=== PATIENT | male | born 1965 | race Caucasian/White ===

== ENCOUNTER 2018-03-29 09:54 | Inpatient (IN) | payer BC ==
[~2018-03-29 09:54] MED LIST: MEROPENEM 500 MG in NS 500 MG/50 ML BAG IVPB SCH
[2018-03-29 10:04] VITALS: BMI 35.8
[2018-03-29 10:14] LABS: VENOUS BLOOD GAS BASE EXCESS -10.9 mmol/L (0.0-2.0); VENOUS BLOOD GAS PO2 101 mm/Hg (30-55); VENOUS BLOOD PH 7.36 (7.32-7.43)
--- NOTE | 2018-03-29 10:18 | ED PDOC ---
Arrival/HPI - General Historian: Patient - History of Present Illness Narrative History of Present Illness (Text): 03/29/18 10:12 This is a 53 y o male with past medical history of HTN and DM2 who presents to the ED [facility] c/o shortness of breath that started yesterday evening and worsening since this am. Reports having mid epigastric pain after coughing yesterday that led to 2 vomiting episodes, but denies nausea or vomiting this am. States he tried to see his PMD Dr. Melgar but his office was closed, so he went to [facility], who sent him directly here to the ED. States he has been sick for the past several days with fever and productive cough with sputum. Has been short of breath in the past but not this severe. Denies chest pain, achiness or tightness. Denies wheezing. States that it is difficult to breathe. Diaphoretic on exam. Denies urinary complaints, LE edema. Admits to decreased PO appetite, but admits to polydipsia Past medical hx: DM2, HTN Past SurgHx: appendectomy Allergies: NKDA Home meds: Januvia daily, Metformin, Metoprolol, Amlodipine (pt does not know dosages) Fam hx: denies Soc hx: admits to smoking 2-3 cigarettes/day for the past 3-4 y; denies EtOH or illicit drug use PMD: Dr. Melgar <Oumar Spencer - Last Filed: 03/29/18 11:55> - Critical Care Critical Care Minutes: 45 minutes - History of Present Illness Time/Duration: 24 hours Symptom Onset: Gradual Symptom Course: Worsening Activities at Onset: Light Context: Home Associated Symptoms (Text): 03/29/18 12:13 Seen and examined with the resident. Our history and physical exam reveals a gentleman complaining of fever or chills cough shortness of breath since yesterday. He was seen at a walk-in center this morning and directed to the emergency department. He is in severe distress severely diaphoretic and tachycardic. His initial lactate was greater than 10. His temperature was 104.6. After 4 L of normal saline solution his lactate decreased to 4.0. His temperature is 100. He was seen in the emergency department by the infectious disease specialist. He will be admitted to a telemetry bed. <Good Vieyra - Last Filed: 03/29/18 12:14> - General Chief Complaint: Shortness Of Breath Past Medical History - Cardiac Hx Hypertension: Yes - Endocrine/Metabolic Hx Diabetes Mellitus Type 2: Yes - Psychiatric Hx Substance Use: No - Surgical History Hx Appendectomy: Yes <Oumar Spencer - Last Filed: 03/29/18 11:55> - Provider Review Nursing Documentation Reviewed: Yes <Good Vieyra - Last Filed: 03/29/18 12:14> Family/Social History Family/Social History: No Known Family HX Smoking Status: Current Some Days Smoker Hx Alcohol Use: Yes Hx Substance Use: No <Oumar Spencer - Last Filed: 03/29/18 11:55> - Physician Review Nursing Documentation Reviewed: Yes <Good Vieyra - Last Filed: 03/29/18 12:14> Allergies/Home Meds <Oumar Spencer - Last Filed: 03/29/18 11:55> <Good Vieyra - Last Filed: 03/29/18 12:14> Allergies/Adverse Reactions: Allergies No Known Allergies Allergy (Verified 03/29/18 10:04) Home Medications: Home Meds Medication Instructions Recorded Confirmed Amlodipine/Valsartan/Hcthiazid 1 tab PO DAILY 06/02/16 06/02/16 [Xweepfnbob-Xkrpdxcgp-Vmlsrgykizsyqhgvokz 10 M] SITagliptin [Januvia] 0 mg PO DAILY 06/02/16 06/02/16 Review of Systems - Review of Systems Constitutional: Fatigue, Fevers, Other (Diaphoresis). absent: Weight Change Eyes: absent: Vision Changes ENT: absent: Sore Throat, Rhinorrhea Respiratory: SOB, Cough, Sputum. absent: Wheezing Cardiovascular: ZAMBRANO, Orthopnea. absent: Chest Pain, Palpitations, Calf Pain, Syncope Gastrointestinal: Appetite Changes. absent: Abdominal Pain, Constipation, Diarrhea, Nausea, Vomiting Skin: Normal. absent: Rash, Skin Lesions Neurological: absent: Headache, Dizziness Endocrine: Diaphoresis, Polydipsia. absent: Polyuria <Oumar Spencer - Last Filed: 03/29/18 11:55> - Physician Review All systems were reviewed & negative as marked: Yes <Good Vieyra - Last Filed: 03/29/18 12:14> Physical Exam Vital Signs Temp Pulse Resp BP Pulse Ox 03/29/18 10:05 99.1 F 156 H 20 119/72 98 Temperature: Febrile Blood Pressure: Normal Pulse: Tachycardic Respiratory Rate: Tachypneic Appearance: Positive for: Ill-Appearing, Uncomfortable Pain Distress: None Mental Status: Positive for: Alert and Oriented X 3 - Systems Exam Head: Present: Atraumatic, Normocephalic Pupils: Present: PERRL Extroacular Muscles: Present: EOMI Conjunctiva: Present: Normal Mouth: Present: Moist Mucous Membranes Respiratory/Chest: Present: Clear to Auscultation, Good Air Exchange, Tachypneic. No: Wheezes, Rales, Rhonchi, Tender to Palpation Cardiovascular: Present: Normal S1, S2, Peripheal Pulses Present, Tachycardic. No: Murmurs, Rub, Gallop Abdomen: Present: Normal Bowel Sounds. No: Tenderness, Distention, Mass/Organomegaly Upper Extremity: Present: Normal Inspection, Normal ROM, NORMAL PULSES, Neurovascularly Intact, Capillary Refill < 2s. No: Cyanosis, Edema, Temperature Abnormalties Lower Extremity: Present: Normal Inspection, NORMAL PULSES, Neurovascularly Intact, Capillary Refill < 2 s. No: Edema Neurological: Present: GCS=15, CN II-XII Intact, Speech Normal, Motor Func Grossly Intact Skin: Present: Warm, Normal Color, Diaphoretic. No: Rashes Psychiatric: Present: Alert, Oriented x 3, Normal Insight, Normal Concentration <Oumar Spencer - Last Filed: 03/29/18 11:55> Vital Signs Reviewed: Yes Vital Signs Temp Pulse Resp BP Pulse Ox 03/29/18 10:52 104.6 F H 03/29/18 10:18 104.6 F H 03/29/18 10:13 20 98 03/29/18 10:05 99.1 F 156 H 24 119/72 98 <Good Vieyra - Last Filed: 03/29/18 12:14> Medical Decision Making ED Course and Treatment: 03/29/18 10:18 Code Sepsis called for tachycardia, elevated lactate 10.1, and rectal temp 104.6. 03/29/18 10:29 53 y o male Hx DM, HTN presents with worsening of shortness of breath. IVF boluses running. EKG demonstrate sinus tachycardia at 153 bpm, no acute St-t wave changes noted. Elevated POC glucose at 475. Stat CXR ordered. Pending CBC, CMP, blood cxs, D-dimer, BNP, troponin. Ordered broad-spectrum anbx. Tylenol given for fever. Continue to monitor. 03/29/18 11:56 Tachycardia improving, repeat lactate 4. Pt states he feels a little better. Discussed with Dr. Granados plan for admission. Dr. Esposito consulted (ID), was at bedside evaluating pt. - Lab Interpretations Lab Results: Lab Results 03/29/18 09:56: POC Glucose (mg/dL) 375 H - RAD Interpretation Radiology Orders: 03/29/18 10:07 CHEST PORTABLE [RAD] Stat CHEST PORTABLE [RAD] Stat - EKG Interpretation EKG Interpretation (Text): 03/29/18 10:35 Sinus tachycardia at 153 bpm, no acute St-t wave changes noted. Interpreted by ED Physician: Yes Type: 12 lead EKG Comparison: No previous EKG avail. <Oumar Spencer - Last Filed: 03/29/18 11:55> ED Course and Treatment: In agreement with resident note, which includes further HPI details. Patient was seen and evaluated with resident, came up with plan and treatment together. 53 year old male presents complaining of worsening shortness of breath that began yesterday evening associated with polydipsia. Plan: -- VBG, ABG. VBG shock Panel -- EKG -- Labs -- Chest X-ray -- Influenza Type A and B -- Fingerstick, Rectal temp, Urinary cath -- Blood Culture, Urine Culture -- Urinalysis w/ micro -- Reassess and disposition CXR Impression: As read by me, No active disease. 03/29/18 12:13 Symptoms markedly improved. - Lab Interpretations Lab Results: 03/29/18 10:00 03/29/18 10:00 Lab Results 03/29/18 10:30: pCO2 22 L, pO2 90.0, HCO3 14.3 L, ABG pH 7.42, ABG Total CO2 15.0 L, ABG O2 Saturation 98.5 H, ABG Base Excess -8.1 L, ABG Potassium 3.2 L, Sodium 131.0 L, Chloride 100.0, Glucose 433 H*, Lactate 6.3 H*, FiO2 21.0, Arterial Blood Potassium 3.2 L 03/29/18 10:00: Phosphorus 3.8, Magnesium 1.2 L 03/29/18 10:00: D-Dimer, Quantitative 2346 H 03/29/18 10:00: pO2 101 H, VBG pH 7.36, VBG pCO2 22.0 L, VBG HCO3 12.4 L, VBG Total CO2 13.1 L, VBG O2 Sat (Calc) 98.5 H, VBG Base Excess -10.9 L, VBG Potassium 3.7, Sodium 132.0, Chloride 98.0, Glucose 475 H*, Lactate 10.1 H*, FiO2 21.0, Venous Blood Potassium 3.7 03/29/18 10:00: Sodium 135, Chloride 102, Potassium 3.9, Carbon Dioxide 13 L, Anion Gap 25 H, BUN 22 H, Creatinine 2.0 H, Est GFR ( Amer) 42, Est GFR (Non-Af Amer) 35, Random Glucose 441 H*, Calcium 9.0, Total Bilirubin 2.5 H, AST 32, ALT 22, Alkaline Phosphatase 167 H, Lactate Dehydrogenase 399, Total Creatine Kinase 65, Troponin I < 0.01, NT-Pro-B Natriuret Pep 497 H, Total Protein 8.0, Albumin 3.9, Globulin 4.2, Albumin/Globulin Ratio 0.9 L 03/29/18 10:00: PT 15.1 H, INR 1.31, APTT 22.9 L 03/29/18 10:00: WBC 11.3 H, RBC 4.32, Hgb 12.4 L, Hct 36.4 L, MCV 84.3, MCH 28.7, MCHC 34.1, RDW 13.7, Plt Count 384, MPV 9.6, Gran % 88.8 H, Lymph % (Auto) 10.1 L, Knott % (Auto) 0.9 L, Eos % (Auto) 0.1 L, Baso % (Auto) 0.1, Gran # 10.00 H, Lymph # (Auto) 1.1 L, Knott # (Auto) 0.1, Eos # (Auto) 0.0, Baso # (Auto) 0.01 03/29/18 09:56: POC Glucose (mg/dL) 375 H I have reviewed the lab results: Yes - RAD Interpretation Radiology Orders: 03/29/18 10:07 CHEST PORTABLE [RAD] Stat - Medication Orders Current Medication Orders: Acetaminophen (Tylenol 325mg Tab) 975 mg PO ONCE PRN PRN Reason: Fever >100.4 F Last Admin: 03/29/18 10:52 Dose: 975 mg MAR Pain/Vitals Document 03/29/18 10:52 KV (Rec: 03/29/18 10:53 KV [facility] [id number]) Vitals Temperature (97.6 F-99.6 F) 104.6 F Temperature Source Rectal Gentamicin Sulfate 480 mg/ (Sodium Chloride) 112 mls @ 100 mls/hr IVPB STAT STA; Protocol Stop: 03/29/18 11:26 Magnesium Sulfate/Dextrose (Magnesium Sulfate 1 Gm/100 Ml D5w) 1 gm in 100 mls @ 100 mls/hr IVPB ONCE ONE Stop: 03/29/18 11:55 Sodium Chloride (Sodium Chloride 0.9%) 4,000 mls @ 7,184.88 mls/hr IV .Q34M STA Stop: 03/29/18 11:30 Discontinued Medications Lactated Ringer's 4,000 ml/ IV (SUPPLIES) 4,000 mls @ 7,184.88 mls/hr IV ONCE ONE Stop: 03/29/18 10:52 Piperacillin Sod/Tazobactam Sod (Zosyn 4.5 Gm In Ns 100ml) 4.5 gm in 100 mls @ 200 mls/hr IVPB STAT STA; Protocol Stop: 03/29/18 10:48 Last Admin: 03/29/18 10:53 Dose: 200 mls/hr eMAR Start Stop Document 03/29/18 10:53 KV (Rec: 03/29/18 10:53 KV [facility]16-) Intravenous Solution Start Date 03/29/18 Start Time 10:53 <Good Vieyra - Last Filed: 03/29/18 12:14> - PA / [employer]ATOR / Resident Statement / has reviewed & agrees with the documentation as recorded. / has examined the patient and agrees with the treatment plan. - Scribe Statement The provider has reviewed the documentation as recorded by the Scribe Khadijah Parnell Provider Scribe Attestation: All medical record entries made by the Scribe were at my direction and personally dictated by me. I have reviewed the chart and agree that the record accurately reflects my personal performance of the history, physical exam, medical decision making, and the department course for this patient. I have also personally directed, reviewed, and agree with the discharge instructions and disposition. <Good Vieyra - Last Filed: 03/29/18 12:14> Disposition/Present on Arrival - Present on Arrival Any Indicators Present on Arrival: No History of DVT/PE: No History of Uncontrolled Diabetes: No Urinary Catheter: No History Surgical Site Infection Following: None <Oumar Spencer - Last Filed: 03/29/18 11:55> - Present on Arrival Any Indicators Present on Arrival: No History of DVT/PE: No History of Uncontrolled Diabetes: Yes Urinary Catheter: No History of Decub. Ulcer: No - Disposition Have Diagnosis and Disposition been Completed?: Yes Disposition Time: 11:36 Patient Plan: Admission, Telemetry <Good Vieyra - Last Filed: 03/29/18 12:14> - Disposition Diagnosis: Sepsis, Tachycardia, Hyperglycemia, Renal failure, Dehydration Disposition: HOSPITALIZED Patient Problems: Current Active Problems Problem Status Onset Dehydration Acute Hyperglycemia Acute Renal failure Acute Sepsis Acute Tachycardia Acute Condition: GUARDED
[2018-03-29] MEDS ORDERED: Piperacill/Tazo 4.5gm in NS 4.5 GM/100 ML BAG IVPB STA (10:19)
[2018-03-29 10:29] LABS: GRAN % 88.8 % (50.0-68.0); HEMOGLOBIN 12.4 g/dL (14.0-18.0); LYMPH % 10.1 % (22.0-35.0); MEAN CELL VOLUME 84.3 fl (80.0-105.0); MEAN CORPUSCULAR HEMOGLOBIN 28.7 pg (25.0-35.0); MEAN CORPUSCULAR HGB CONC 34.1 g/dl (31.0-37.0); MEAN PLATELET VOLUME 9.6 fl (7.0-11.0); RBC 4.32 10^6/uL (3.5-6.1); RED CELL DISTRIBUTION WIDTH 13.7 % (11.5-14.5); WHITE BLOOD COUNT 11.3 10^3/uL (4.5-11.0)
[2018-03-29 10:30] LABS: BASO # 0.01 K/mm3 (0.0-2.0); BASO % 0.1 % (0.0-3.0); EOS % 0.1 % (1.5-5.0); INR 1.31; LYMPH # 1.1 (1.2-3.4); MONO # 0.1 (0.1-0.6); MONO % 0.9 % (1.0-6.0); PARTIAL THROMBOPLASTIN TIME 22.9 Seconds (25.1-36.5); PROTHROMBIN TIME 15.1 SECONDS (9.4-12.5)
--- NOTE | 2018-03-29 10:31 | PCM.SEPTIC ---
Sepsis Progress Note - Reassessment Type Date of Evaluation: 03/29/18 Time of Evaluation: 14:49 Reassessment Type: Non-invasive reassessment - Non Invasive Reassessment Were the most recent vital sign reviewed: Yes Vital Sign (Latest): Temp Pulse Resp BP Pulse Ox 104.6 F H 156 H 20 119/72 98 03/29/18 10:18 03/29/18 10:05 03/29/18 10:13 03/29/18 10:05 03/29/18 10:13 Cardiovascular: Yes: Regular Rate, Rhythm, Chest Non Tender. No: Edema, JVD, Murmur, Friction Rub Respiratory: Yes: Normal Breath Sounds. No: Decreased Breath Sounds, Accessory Muscle Use, Respiratory Distress Capillary Refill: Normal (Less than 2 sec) Skin: Normal Color, Warm, Dry <Alona Hatch - Last Filed: 03/29/18 14:48> - Non Invasive Reassessment Vital Sign (Latest): Temp Pulse Resp BP Pulse Ox 98.1 F 91 H 20 135/78 100 04/03/18 14:00 04/03/18 17:31 04/03/18 14:00 04/03/18 17:31 04/03/18 14:00 <Estevan Ace - Last Filed: 04/07/18 17:10> Attending/Attestation - Attestation I have personally seen and examined this patient.: No I have fully participated in the care of the patient.: No I have reviewed all pertinent clinical information, including history, physical exam and plan: No <Estevan Ace - Last Filed: 04/07/18 17:10>
[2018-03-29 10:36] LABS: ALB/GLOB RATIO 0.9 (1.1-1.8); ALBUMIN 3.9 g/dL (3.0-4.8); ALT/SGPT 22 U/L (7-56); AST/SGOT 32 U/L (17-59); BLOOD UREA NITROGEN 22 mg/dL (7-21); GFR NON-AFRICAN AMERICAN 35
[2018-03-29 10:40] LABS: ARTERIAL BLOOD GAS HCO3 14.3 mmol/L (21-28); ARTERIAL BLOOD GAS O2 SAT 98.5 % (95-98); ARTERIAL BLOOD GAS PCO2 22 mm/Hg (35-45); ARTERIAL BLOOD GAS PH 7.42 (7.35-7.45)
[2018-03-29 10:45] LABS: B-TYPE NATRIURETIC PEPTIDE 497 pg/mL (0-450); TROPONIN I < 0.01 ng/mL
[2018-03-29] MEDS ORDERED: Magnesium Sulfate 1 gm in D5W 1 GM/100 ML BAG IVPB ONE (10:56)
[2018-03-29 11:11] LABS: URINE BILIRUBIN NEGATIVE (NEGATIVE); URINE BLOOD LARGE (NEGATIVE); URINE GLUCOSE (UA) >=1000 mg/dL (NEGATIVE); URINE LEUKOCYTE ESTERASE NEGATIVE Leu/uL (NEGATIVE); URINE PROTEIN 30 mg/dL (<30 mg/dL); URINE UROBILINOGEN 0.2 E.U./dL (<1 E.U./dL)
[2018-03-29 11:15] LABS: URINE APPEARANCE SL CLOUDY (CLEAR); URINE COLOR YELLOW (YELLOW)
[2018-03-29 11:32] LABS: URINE BACTERIA MANY (NEG); URINE EPITHELIAL CELLS 0 - 2 /hpf (0-5); URINE RBC TNTC /hpf (0-2)
[2018-03-29] MEDS ORDERED: Insulin Regular 1 UNITS/0.01 ML ML SC STA (11:33)
[2018-03-29 11:45] LABS: VENOUS BLOOD GAS BASE EXCESS -8.2 mmol/L (0.0-2.0); VENOUS BLOOD GAS PO2 109 mm/Hg (30-55); VENOUS BLOOD PH 7.35 (7.32-7.43)
[2018-03-29] MEDS ORDERED: Sodium Chloride 0.9% 1,000 ML IV STA ×2 (12:15→23:55)
--- NOTE | 2018-03-29 13:08 | RAD ---
Date of service: 03/29/2018 HISTORY: sob COMPARISON: Comparison chest 06/02/2016. FINDINGS: LUNGS: No active pulmonary disease. Redemonstrated are tiny granulomas left apex and left upper lobe PLEURA: No significant pleural effusion identified, no pneumothorax apparent. CARDIOVASCULAR: No aortic atherosclerotic calcification present. Normal cardiac size. No pulmonary vascular congestion. OSSEOUS STRUCTURES: No significant abnormalities. VISUALIZED UPPER ABDOMEN: Normal. OTHER FINDINGS: None. IMPRESSION: No active disease. Redemonstrated are tiny granulomas left apex and upper lobe
[2018-03-29] MEDS ORDERED: Influenza Vaccine 60 mcg/0.5 mL SYR (4YR UP) IM ONE (13:49)
[2018-03-29] MEDS ORDERED: Pneumococcal 23-Valent Vaccine IM ONE (13:49)
[2018-03-29] MEDS: Sodium Chloride 0.9% 1,000 ML IV SCH (14:40)
[2018-03-29] MEDS ORDERED: Vancomycin 1gm in NS 250ml 1 GM/250 ML BAG IVPB SCH (16:00)
[2018-03-29 17:14] LABS: TROPONIN I 0.08 ng/mL
--- NOTE | 2018-03-29 17:35 | CP.PCM.CON ---
<Brenden Robertson - Last Filed: 03/29/18 17:22> History of Present Illness - History of Present Illness History of Present Illness: Brenden Robertson, PGY1 ICU Consult Note for Dr. Wan Patient is a 53 y/o M with PMHx of HTN and DM2 who presents to the ED via EMS with complaints of shortness of breath that started yesterday evening and worsening since the morning. In the ED, patient said he had mild epigastric pain with cough. He also endorsed x2 vomiting episodes. Patient went to see his PMD but he said the office was closed. However, in the ED patient had no episodes of vomiting. Patient also had some complaints of shortness of breath. In the ED, Code Sepsis was called. Patient had a temperature of 104.6, tachycardia with HR 156. CXR was negative for any active disease. ICU was consulted for evaluation of sepsis. Patient was examined by the ICU team. He initially presented with hypotension. He was given a total of x4 liters of IVF. However, later his blood pressure improved to BP 106/60. Sinus tachycardia was noted on the monitor. Patient said he has had some pain with urination and increased frequency of urination. Shortness of breath improved since he came to the ICU. Denies cp, abdominal pain, n/v/d, lightheadedness, dizziness. A full 12 point ROS was conducted and unremarkable except as stated above PMD: Dr. Melgar PMHx: DM2, HTN PSHx: appendectomy Allergies: NKDA Home meds: Januvia daily, Metformin, Metoprolol, Amlodipine (pt does not know dosages) FamHx: denies SocialHx: admits to smoking 2-3 cigarettes/day for the past 3-4 y; denies EtOH or illicit drug use Review of Systems - Review of Systems All systems: reviewed and no additional remarkable complaints except (as per HPI) Past Patient History - Infectious Disease Hx of Infectious Diseases: None - Past Social History Smoking Status: Light Smoker < 10 Cigarettes Daily - CARDIAC Hx Cardiac Disorders: Yes Hx Hypertension: Yes - PULMONARY Hx Respiratory Disorders: Yes Other/Comment: smoker 2 cigs a night - NEUROLOGICAL Hx Neurological Disorder: No - HEENT Hx HEENT Problems: Yes Other/Comment: hoarse voice x 2 weeks - RENAL Hx Kidney Stones: Yes ("kidney infection" 1 yr ago) Other/Comment: 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." - ENDOCRINE/METABOLIC Hx Endocrine Disorders: Yes Hx Diabetes Mellitus Type 2: Yes - HEMATOLOGICAL/ONCOLOGICAL Hx Blood Disorders: No - INTEGUMENTARY Hx Dermatological Problems: Yes Other/Comment: ble and beet brown skin discolorations and dry skin - MUSCULOSKELETAL/RHEUMATOLOGICAL Hx Falls: No - GASTROINTESTINAL Hx Gastrointestinal Disorders: Yes (obese) Hx Gastroesophageal Reflux: Yes Other/Comment: right lower abd palpable hernia - GENITOURINARY/GYNECOLOGICAL Hx Genitourinary Disorders: Yes Other/Comment: kidney infections from "holding urine" for long periods of time, 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 - PSYCHIATRIC Hx Substance Use: No - SURGICAL HISTORY Hx Surgeries: Yes Hx Appendectomy: Yes - ANESTHESIA Hx Anesthesia: Yes Hx Anesthesia Reactions: No Hx Malignant Hyperthermia: No Meds Allergies/Adverse Reactions: Allergies Allergy/AdvReac Type Severity Reaction Status Date / Time No Known Allergies Allergy Verified 03/29/18 10:04 - Medications Medications: Current Medications Acetaminophen (Tylenol 325mg Tab) 975 mg PO ONCE PRN PRN Reason: Fever >100.4 F Last Admin: 03/29/18 10:52 Dose: 975 mg Acetaminophen (Tylenol 325mg Tab) 650 mg PO Q4H PRN PRN Reason: Fever >100.4 F Sodium Chloride (Sodium Chloride 0.9%) 1,000 mls @ 80 mls/hr IV .[id number] JÚNIOR Last Admin: 03/29/18 14:40 Dose: 80 mls/hr Meropenem/Sodium Chloride (Merrem Iv 500 Mg/Ns 50 Ml) 500 mg in 50 mls @ 100 mls/hr IVPB Q12 JÚNIOR; Protocol Stop: 03/29/18 22:29 Vancomycin HCl (Vancomycin 1gm) 1 gm in 250 mls @ 167 mls/hr IVPB Q12H JÚNIOR; Protocol Insulin Human Lispro (Humalog Low) 0 units SC ACHS JÚNIOR; Protocol Physical Exam - Constitutional Appears: No Acute Distress - Head Exam Head Exam: ATRAUMATIC, NORMAL INSPECTION, NORMOCEPHALIC - Eye Exam Eye Exam: EOMI, Normal appearance - ENT Exam ENT Exam: Mucous Membranes Moist, Normal Exam - Neck Exam Neck exam: Positive for: Normal Inspection - Respiratory Exam Respiratory Exam: Clear to Auscultation Bilateral. absent: Chest Wall Tenderness, Rales, Rhonchi, Wheezes - Cardiovascular Exam Cardiovascular Exam: RRR, +S1, +S2 - GI/Abdominal Exam GI & Abdominal Exam: Soft. absent: Guarding, Organomegaly, Rebound, Rigid, Tenderness - Exam Additional comments: Fuentes in place - Extremities Exam Extremities exam: Positive for: normal inspection - Neurological Exam Neurological exam: Alert, Oriented x3 - Skin Skin Exam: Dry, Intact, Normal Color, Warm Results - Vital Signs Recent Vital Signs: Last Vital Signs Temp 100.1 F H 03/29/18 15:00 Pulse 121 H 03/29/18 15:00 Resp 18 03/29/18 14:05 BP 84/55 L 03/29/18 14:05 Pulse Ox 95 03/29/18 14:05 - Labs Result Diagrams: 03/29/18 10:00 03/29/18 10:00 Labs: Laboratory Results - last 24 hr 03/29/18 03/29/18 03/29/18 09:56 10:00 10:00 WBC 11.3 H RBC 4.32 Hgb 12.4 L Hct 36.4 L MCV 84.3 MCH 28.7 MCHC 34.1 RDW 13.7 Plt Count 384 MPV 9.6 Gran % 88.8 H Lymph % (Auto) 10.1 L [place] % (Auto) 0.9 L Eos % (Auto) 0.1 L Baso % (Auto) 0.1 Gran # 10.00 H Lymph # (Auto) 1.1 L [place] # (Auto) 0.1 Eos # (Auto) 0.0 Baso # (Auto) 0.01 PT 15.1 H INR 1.31 APTT 22.9 L D-Dimer, Quantitative pCO2 pO2 HCO3 ABG pH ABG Total CO2 ABG O2 Saturation ABG Base Excess ABG Potassium VBG pH VBG pCO2 VBG HCO3 VBG Total CO2 VBG O2 Sat (Calc) VBG Base Excess VBG Potassium Sodium Chloride Glucose Lactate FiO2 Potassium Carbon Dioxide Anion Gap BUN Creatinine Est GFR ( Amer) Est GFR (Non-Af Amer) POC Glucose (mg/dL) 375 H Random Glucose Calcium Phosphorus Magnesium Total Bilirubin AST ALT Alkaline Phosphatase Lactate Dehydrogenase Total Creatine Kinase Troponin I NT-Pro-B Natriuret Pep Total Protein Albumin Globulin Albumin/Globulin Ratio Amylase Lipase Arterial Blood Potassium Venous Blood Potassium Urine Color Urine Appearance Urine pH Ur Specific [place] Urine Protein Urine Glucose (UA) Urine Ketones Urine Blood Urine Nitrate Urine Bilirubin Urine Urobilinogen Ur Leukocyte Esterase Urine RBC Urine WBC Ur Epithelial Cells Urine Bacteria Influenza Typ A,B (EIA) 03/29/18 03/29/18 03/29/18 10:00 10:00 10:00 WBC RBC Hgb Hct MCV MCH MCHC RDW Plt Count MPV Gran % Lymph % (Auto) [place] % (Auto) Eos % (Auto) Baso % (Auto) Gran # Lymph # (Auto) [place] # (Auto) Eos # (Auto) Baso # (Auto) PT INR APTT D-Dimer, Quantitative 2346 H pCO2 pO2 101 H HCO3 ABG pH ABG Total CO2 ABG O2 Saturation ABG Base Excess ABG Potassium VBG pH 7.36 VBG pCO2 22.0 L VBG HCO3 12.4 L VBG Total CO2 13.1 L VBG O2 Sat (Calc) 98.5 H VBG Base Excess -10.9 L VBG Potassium 3.7 Sodium 135 132.0 Chloride 102 98.0 Glucose 475 H* Lactate 10.1 H* FiO2 21.0 Potassium 3.9 Carbon Dioxide 13 L Anion Gap 25 H BUN 22 H Creatinine 2.0 H Est GFR ( Amer) 42 Est GFR (Non-Af Amer) 35 POC Glucose (mg/dL) Random Glucose 441 H* Calcium 9.0 Phosphorus Magnesium Total Bilirubin 2.5 H AST 32 ALT 22 Alkaline Phosphatase 167 H Lactate Dehydrogenase 399 Total Creatine Kinase 65 Troponin I < 0.01 NT-Pro-B Natriuret Pep 497 H Total Protein 8.0 Albumin 3.9 Globulin 4.2 Albumin/Globulin Ratio 0.9 L Amylase Lipase Arterial Blood Potassium Venous Blood Potassium 3.7 Urine Color Urine Appearance Urine pH Ur Specific [place] Urine Protein Urine Glucose (UA) Urine Ketones Urine Blood Urine Nitrate Urine Bilirubin Urine Urobilinogen Ur Leukocyte Esterase Urine RBC Urine WBC Ur Epithelial Cells Urine Bacteria Influenza Typ A,B (EIA) 03/29/18 03/29/18 03/29/18 10:00 10:30 10:55 WBC RBC Hgb Hct MCV MCH MCHC RDW Plt Count MPV Gran % Lymph % (Auto) [place] % (Auto) Eos % (Auto) Baso % (Auto) Gran # Lymph # (Auto) [place] # (Auto) Eos # (Auto) Baso # (Auto) PT INR APTT D-Dimer, Quantitative pCO2 22 L pO2 90.0 HCO3 14.3 L ABG pH 7.42 ABG Total CO2 15.0 L ABG O2 Saturation 98.5 H ABG Base Excess -8.1 L ABG Potassium 3.2 L VBG pH VBG pCO2 VBG HCO3 VBG Total CO2 VBG O2 Sat (Calc) VBG Base Excess VBG Potassium Sodium 131.0 L Chloride 100.0 Glucose 433 H* Lactate 6.3 H* FiO2 21.0 Potassium Carbon Dioxide Anion Gap BUN Creatinine Est GFR ( Amer) Est GFR (Non-Af Amer) POC Glucose (mg/dL) Random Glucose Calcium Phosphorus 3.8 Magnesium 1.2 L Total Bilirubin AST ALT Alkaline Phosphatase Lactate Dehydrogenase Total Creatine Kinase Troponin I NT-Pro-B Natriuret Pep Total Protein Albumin Globulin Albumin/Globulin Ratio Amylase Lipase Arterial Blood Potassium 3.2 L Venous Blood Potassium Urine Color Urine Appearance Urine pH Ur Specific [place] Urine Protein Urine Glucose (UA) Urine Ketones Urine Blood Urine Nitrate Urine Bilirubin Urine Urobilinogen Ur Leukocyte Esterase Urine RBC Urine WBC Ur Epithelial Cells Urine Bacteria Influenza Typ A,B (EIA) Negative for flu a/b 03/29/18 03/29/18 03/29/18 11:00 11:29 11:30 WBC RBC Hgb Hct MCV MCH MCHC RDW Plt Count MPV Gran % Lymph % (Auto) [place] % (Auto) Eos % (Auto) Baso % (Auto) Gran # Lymph # (Auto) [place] # (Auto) Eos # (Auto) Baso # (Auto) PT INR APTT D-Dimer, Quantitative pCO2 pO2 109 H HCO3 ABG pH ABG Total CO2 ABG O2 Saturation ABG Base Excess ABG Potassium VBG pH 7.35 VBG pCO2 29.0 L VBG HCO3 16.0 L VBG Total CO2 16.9 L VBG O2 Sat (Calc) 98.5 H VBG Base Excess -8.2 L VBG Potassium 3.2 L Sodium 134.0 Chloride 105.0 Glucose 369 H Lactate 4.0 H* FiO2 21.0 Potassium Carbon Dioxide Anion Gap BUN Creatinine Est GFR ( Amer) Est GFR (Non-Af Amer) POC Glucose (mg/dL) 312 H Random Glucose Calcium Phosphorus Magnesium Total Bilirubin AST ALT Alkaline Phosphatase Lactate Dehydrogenase Total Creatine Kinase Troponin I NT-Pro-B Natriuret Pep Total Protein Albumin Globulin Albumin/Globulin Ratio Amylase Lipase Arterial Blood Potassium Venous Blood Potassium 3.2 L Urine Color Yellow Urine Appearance Sl cloudy Urine pH 6.0 Ur Specific [place] 1.020 Urine Protein 30 H Urine Glucose (UA) >=1000 Urine Ketones Negative Urine Blood Large H Urine Nitrate Positive H Urine Bilirubin Negative Urine Urobilinogen 0.2 Ur Leukocyte Esterase Negative Urine RBC Tntc Urine WBC 2 - 5 Ur Epithelial Cells 0 - 2 Urine Bacteria Many Influenza Typ A,B (EIA) 03/29/18 03/29/18 03/29/18 12:30 13:58 15:26 WBC RBC Hgb Hct MCV MCH MCHC RDW Plt Count MPV Gran % Lymph % (Auto) [place] % (Auto) Eos % (Auto) Baso % (Auto) Gran # Lymph # (Auto) [place] # (Auto) Eos # (Auto) Baso # (Auto) PT INR APTT D-Dimer, Quantitative pCO2 pO2 HCO3 ABG pH ABG Total CO2 ABG O2 Saturation ABG Base Excess ABG Potassium VBG pH VBG pCO2 VBG HCO3 VBG Total CO2 VBG O2 Sat (Calc) VBG Base Excess VBG Potassium Sodium Chloride Glucose Lactate FiO2 Potassium Carbon Dioxide Anion Gap BUN Creatinine Est GFR ( Amer) Est GFR (Non-Af Amer) POC Glucose (mg/dL) 372 H 315 H 248 H Random Glucose Calcium Phosphorus Magnesium Total Bilirubin AST ALT Alkaline Phosphatase Lactate Dehydrogenase Total Creatine Kinase Troponin I NT-Pro-B Natriuret Pep Total Protein Albumin Globulin Albumin/Globulin Ratio Amylase Lipase Arterial Blood Potassium Venous Blood Potassium Urine Color Urine Appearance Urine pH Ur Specific [place] Urine Protein Urine Glucose (UA) Urine Ketones Urine Blood Urine Nitrate Urine Bilirubin Urine Urobilinogen Ur Leukocyte Esterase Urine RBC Urine WBC Ur Epithelial Cells Urine Bacteria Influenza Typ A,B (EIA) 03/29/18 16:40 WBC RBC Hgb Hct MCV MCH MCHC RDW Plt Count MPV Gran % Lymph % (Auto) [place] % (Auto) Eos % (Auto) Baso % (Auto) Gran # Lymph # (Auto) [place] # (Auto) Eos # (Auto) Baso # (Auto) PT INR APTT D-Dimer, Quantitative pCO2 pO2 HCO3 ABG pH ABG Total CO2 ABG O2 Saturation ABG Base Excess ABG Potassium VBG pH VBG pCO2 VBG HCO3 VBG Total CO2 VBG O2 Sat (Calc) VBG Base Excess VBG Potassium Sodium Chloride Glucose Lactate FiO2 Potassium Carbon Dioxide Anion Gap BUN Creatinine Est GFR ( Amer) Est GFR (Non-Af Amer) POC Glucose (mg/dL) Random Glucose Calcium Phosphorus Magnesium Total Bilirubin AST ALT Alkaline Phosphatase Lactate Dehydrogenase Total Creatine Kinase Troponin I 0.08 D NT-Pro-B Natriuret Pep Total Protein Albumin Globulin Albumin/Globulin Ratio Amylase 35 Lipase 34 Arterial Blood Potassium Venous Blood Potassium Urine Color Urine Appearance Urine pH Ur Specific [place] Urine Protein Urine Glucose (UA) Urine Ketones Urine Blood Urine Nitrate Urine Bilirubin Urine Urobilinogen Ur Leukocyte Esterase Urine RBC Urine WBC Ur Epithelial Cells Urine Bacteria Influenza Typ A,B (EIA) Assessment & Plan - Assessment and Plan (Free Text) Assessment: Patient is a 53 y/o M with PMHx of HTN and DM2 who presents to the ED via EMS with complaints of mild abdominal pain with cough and shortness of breath. In the ED, code sepsis was called. Patient was noted to be hypotensive and ICU was consulted for evaluation of sepsis. Plan: Neuro: - AAOx3 - 104.6 in the ED; currently afebrile. Maintain normothermia Cardio: - Initially hypotensive in ED; given x4 L IVF. Patient brought to ICU and responded adequately. Will monitor blood pressure and will hold off on placement of central line and initiation of pressors. - troponin negative x2 - EKG in ED: sinus tachycardia; no acute ST or T wave changes - Hx of HTN Pulm: - Patient is saturating well - Maintain SaO2 > 92% GI: - GI ppx - HHD Renal: - RAMON; BUN/Cr is 22/2.0 - replete lytes as needed Heme: - H/H stable - DVT ppx Endo: - Maintain euglycemia; target range 140-180 blood glucose as per NICE-SUGAR trial - ISS (low) - Accuchecks ACHS - Hx of DM ID: - Sepsis - consider Urosepsis - CT abdomen/pelvis to r/o infectious source such as intra-abdominal abscess - Fluids - 30cc/kg for sepsis - started on merropenem and vancomycin - f/u blood cx, urine cx, mrsa screen - wbc 11.3 - UA: large blood, +nitrate, +rbc - ID on consult - Lactate trending downwards; initial lactate 10 in ED - D-dimer elevated likely due to infection - influenza negative Dispo: Monitor patient in the ICU. Case was discussed and reviewed with Attending Physician, Dr. Wan <Yareli Wan - Last Filed: 03/30/18 17:48> Meds - Medications Medications: Current Medications Acetaminophen (Tylenol 325mg Tab) 975 mg PO ONCE PRN PRN Reason: Fever >100.4 F Last Admin: 03/29/18 10:52 Dose: 975 mg Albuterol/Ipratropium (Duoneb 3 Mg/0.5 Mg (3 Ml) Ud) 3 ml IH Q4H PRN PRN Reason: Shortness of Breath Last Admin: 03/30/18 10:35 Dose: 3 ml Heparin Sodium (Porcine) (Heparin) 5,000 units SC Q12 JÚNIOR; Protocol Last Admin: 03/30/18 10:14 Dose: Not Given Sodium Chloride (Sodium Chloride 0.9%) 1,000 mls @ 80 mls/hr IV .[id number] JÚNIOR Last Admin: 03/29/18 14:40 Dose: 80 mls/hr Meropenem/Sodium Chloride (Merrem Iv 500 Mg/Ns 50 Ml) 500 mg in 50 mls @ 100 mls/hr IVPB Q8 JÚNIOR; Protocol Stop: 04/08/18 06:01 Last Admin: 03/30/18 14:49 Dose: 100 mls/hr Acetaminophen (Ofirmev) 1,000 mg in 100 mls @ 400 mls/hr IVPB Q6H PRN PRN Reason: Temperature Stop: 04/01/18 17:06 Last Admin: 03/30/18 17:15 Dose: 400 mls/hr Insulin Human Lispro (Humalog Low) 0 units SC ACHS JÚNIOR; Protocol Last Admin: 03/30/18 12:29 Dose: Not Given Morphine Sulfate (Morphine) 2 mg IVP Q6H PRN PRN Reason: Pain, moderate (4-7) Last Admin: 03/30/18 16:00 Dose: 2 mg Pantoprazole Sodium (Protonix Inj) 40 mg IVP DAILY JÚNIOR Last Admin: 03/30/18 10:26 Dose: 40 mg Results - Vital Signs Recent Vital Signs: Last Vital Signs Temp 98 F 03/30/18 04:00 Pulse 149 H 03/30/18 17:20 Resp 34 H 03/30/18 17:20 BP 116/73 03/30/18 17:16 Pulse Ox 98 03/30/18 17:20 - Labs Result Diagrams: 03/30/18 05:00 03/30/18 05:00 Labs: Laboratory Results - last 24 hr 03/29/18 03/29/18 03/30/18 16:40 17:22 05:00 WBC 22.7 H D RBC 3.51 Hgb 9.8 L D Hct 29.4 L MCV 83.8 MCH 27.9 MCHC 33.3 RDW 14.0 Plt Count 282 MPV 9.2 Sodium Potassium Chloride Carbon Dioxide Anion Gap BUN Creatinine Est GFR ( Amer) Est GFR (Non-Af Amer) POC Glucose (mg/dL) 209 H Random Glucose Calcium Phosphorus Magnesium Total Bilirubin Direct Bilirubin AST ALT Alkaline Phosphatase Total Protein Albumin Globulin Albumin/Globulin Ratio Procalcitonin 77.67 H 03/30/18 03/30/18 03/30/18 05:00 05:00 07:11 WBC RBC Hgb Hct MCV MCH MCHC RDW Plt Count MPV Sodium 137 Potassium 4.2 Chloride 110 H Carbon Dioxide 18 L Anion Gap 13 BUN 26 H Creatinine 1.7 H Est GFR ( Amer) 51 Est GFR (Non-Af Amer) 42 POC Glucose (mg/dL) 235 H Random Glucose 223 H Calcium 7.4 L Phosphorus 2.8 Magnesium 1.5 L Total Bilirubin 1.6 H Direct Bilirubin 0.4 AST 28 ALT 25 Alkaline Phosphatase 81 Total Protein 6.6 Albumin 3.0 Globulin 3.6 Albumin/Globulin Ratio 0.8 L Procalcitonin 03/30/18 12:53 WBC RBC Hgb Hct MCV MCH MCHC RDW Plt Count MPV Sodium Potassium Chloride Carbon Dioxide Anion Gap BUN Creatinine Est GFR ( Amer) Est GFR (Non-Af Amer) POC Glucose (mg/dL) 251 H Random Glucose Calcium Phosphorus Magnesium Total Bilirubin Direct Bilirubin AST ALT Alkaline Phosphatase Total Protein Albumin Globulin Albumin/Globulin Ratio Procalcitonin Addendum Addendum: 03/29/18 17:46 MICU ATTENDING ADDENDUM FOR 03/29/2018: Patient seen and examined on 03/29 with housestaff. Case discussed in round with housestaff. Agree with note above with the following additions/exception: 53m with HTN and DM and hx of rneal stones being admitted with likely septic shock. Given his hx of stones and dirty Ua on admissoin I suspect urosepsis. he will need a CT A/P to look for stones/hydronehrosis etc. Will give 30cc/kg for IV NS Insert fuentes monitor urine output f/u cultures f/u CT abd/pelvis broad abx with merrem and vanc if Bp drop below MAP 65, will insert central line and start levophed Rest of care above Yareli Wan MD Pulmonary Critical Care and Sleep Medicine
--- NOTE | 2018-03-29 18:24 | HP ---
DATE OF EXAM: 03/29/2018 HISTORY OF PRESENT ILLNESS: Mr. Shelton is a 53-year-old male admitted to the hospital with nausea and vomiting, several episodes. He has been sick since last night, epigastric pain. He has history of diabetes mellitus type 2, no ketones. He was transferred to the floor, given fluid in the ED. His blood pressure declined to 84 systolic. Sepsis code was called. ICU consult was called. PAST MEDICAL HISTORY: Diabetes mellitus and hypertension. SURGICAL HISTORY: Appendectomy. ALLERGIES: NO KNOW DRUG ALLERGIES. HOME MEDICATIONS: Januvia, metformin, metoprolol, and amlodipine. FAMILY HISTORY: Noncontributory. SOCIAL HISTORY: Admits smoking regularly, one pack a day. No history of alcohol abuse. Lives at home. REVIEW OF SYSTEMS: As per HPI. Rest of 12-point review of systems reviewed negative. PHYSICAL EXAMINATION VITAL SIGNS: Temperature 99,heart rate 150 per minute, respiratory rate 20 per minute, blood pressure 120/70, pulse oximetry 98% on room air. HEENT: Pallor positive. NECK: No lymphadenopathy. CHEST: Air entry present and equal bilaterally. No added sound. No wheezes. No rhonchi. CARDIOVASCULAR: Tachycardia present. ABDOMEN: Soft and nontender. No hepatosplenomegaly. EXTREMITIES: No edema. CENTRAL NERVOUS SYSTEM: Alert and oriented x3. No focal sensory or motor deficit. SPINE: Nontender. LABORATORY DATA: White count 11.3, hemoglobin 12.4, hematocrit 36.4, and platelets 384. Sodium 135, potassium 3.9, BUN 22, creatinine 2, and glucose 448. ASSESSMENT AND PLAN: 1. Sepsis. 2. Anemia. 3. Leukocytosis. 4. Uncontrolled diabetes mellitus. 5. Hypertension. PLAN: We will transfer to ICU. ID consultation with Dr. Esposito requested. Received a dose of Zosyn and gentamicin in the ER. We will continue meropenem every 12 hours as recommended by ID, vancomycin every 12 hours, Tylenol 650 every 4 hours p.r.n. for pain. We will hold antihypertensive. We will hold oral hypoglycemics. We will do insulin sliding scale. We will do pancreatic enzymes. Stat bilirubin elevated at 2.5. We will get a GI consultation with Dr. Carrero, Renal consultation with , and ID consultation with Dr. Esposito. Gloria Granados MD [facility] # [id number]
--- NOTE | 2018-03-29 18:27 | CARD ---
APPROVED REPORT Date of service: 03/29/2018 EKG Measurement Heart [id number] <Conclusion> Sinus tachycardia Nonspecific ST abnormality Abnormal ECG
[2018-03-29] MEDS ORDERED: MEROPENEM 500 MG in NS 500 MG/50 ML BAG IVPB SCH (22:00)
[2018-03-29] MEDS: Insulin Lispro (humaLOG) LOW Coverage SC SCH (22:00)
[2018-03-30 05:48] LABS: HEMOGLOBIN 9.8 g/dL (14.0-18.0); MEAN CELL VOLUME 83.8 fl (80.0-105.0); MEAN CORPUSCULAR HEMOGLOBIN 27.9 pg (25.0-35.0); MEAN CORPUSCULAR HGB CONC 33.3 g/dl (31.0-37.0); MEAN PLATELET VOLUME 9.2 fl (7.0-11.0); RBC 3.51 10^6/uL (3.5-6.1); WHITE BLOOD COUNT 22.7 10^3/uL (4.5-11.0)
[2018-03-30] MEDS: MEROPENEM 500 MG in NS 500 MG/50 ML BAG IVPB SCH ×3 (06:00→21:27)
[2018-03-30 06:13] LABS: ALB/GLOB RATIO 0.8 (1.1-1.8); CALCIUM 7.4 mg/dL (8.4-10.5)
[2018-03-30] MEDS: Insulin Lispro (humaLOG) LOW Coverage SC SCH ×4 (09:15→22:00)
[2018-03-30] MEDS ORDERED: Magnesium Sulfate 1 gm in D5W 1 GM/100 ML BAG IVPB ONE (10:16)
[2018-03-30] MEDS: Albuterol-Ipratrop 3 mg / 0.5 (3 ml) UD IH PRN (10:35)
--- NOTE | 2018-03-30 11:38 | CP.PCM.CON ---
<Earl Shine - Last Filed: 03/30/18 11:31> History of Present Illness - History of Present Illness History of Present Illness: PGY-4 GI Fellow Consult Note Pt is a 53 yo M with DM2, HTN, h/o Renal Calculi who presented with abd pain, shortness of breath and admitted to the ICU for sepsis related to Pyelonephritis with obstructing renal calculus with hydronephrosis. GI consulted for elevated bilirubin. Pt states that over the last several days he had been having some sharp, L sided abd pain with some polyuria and dysuria. No clear precipitating nor alleviating factors. Symptoms persisited with onset of shortness of breath which prompted his presentation. He denies any h/o liver disease, IVDU/EtOH use, change in medication, nor changes in bowel habits. No signs of blood in stool. States that he had a Colonoscopy somewhere within the last few years that was reportedly normal. No prior EGDs. 12 point ROS negative other than stated above MHx: See above SurgHx: Appendectomy Meds: Reviewed in chart FamHx: Denied GI/CRC SocialHx: 2-3 cigarettes/day for the past 3-4 y; denies EtOH or illicit drug use Allergies: NKDA Past Patient History - Infectious Disease Hx of Infectious Diseases: None - Past Social History Smoking Status: Light Smoker < 10 Cigarettes Daily - CARDIAC Hx Cardiac Disorders: Yes Hx Hypertension: Yes - PULMONARY Hx Respiratory Disorders: Yes Other/Comment: smoker 2 cigs a night - NEUROLOGICAL Hx Neurological Disorder: No - HEENT Hx HEENT Problems: Yes Other/Comment: hoarse voice x 2 weeks - RENAL Hx Kidney Stones: Yes ("kidney infection" 1 yr ago) Other/Comment: 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 have an 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." - ENDOCRINE/METABOLIC Hx Endocrine Disorders: Yes Hx Diabetes Mellitus Type 2: Yes - HEMATOLOGICAL/ONCOLOGICAL Hx Blood Disorders: No - INTEGUMENTARY Hx Dermatological Problems: Yes Other/Comment: ble and beet brown skin discolorations and dry skin - MUSCULOSKELETAL/RHEUMATOLOGICAL Hx Falls: No - GASTROINTESTINAL Hx Gastrointestinal Disorders: Yes (obese) Hx Gastroesophageal Reflux: Yes Other/Comment: right lower abd palpable hernia - GENITOURINARY/GYNECOLOGICAL Hx Genitourinary Disorders: Yes Other/Comment: kidney infections from "holding urine" for long periods of time, 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 - PSYCHIATRIC Hx Substance Use: No - SURGICAL HISTORY Hx Surgeries: Yes Hx Appendectomy: Yes - ANESTHESIA Hx Anesthesia: Yes Hx Anesthesia Reactions: No Hx Malignant Hyperthermia: No Meds Allergies/Adverse Reactions: Allergies Allergy/AdvReac Type Severity Reaction Status Date / Time No Known Allergies Allergy Verified 03/29/18 10:04 - Medications Medications: Current Medications Acetaminophen (Tylenol 325mg Tab) 975 mg PO ONCE PRN PRN Reason: Fever >100.4 F Last Admin: 03/29/18 10:52 Dose: 975 mg Acetaminophen (Tylenol 325mg Tab) 650 mg PO Q4H PRN PRN Reason: Fever >100.4 F Last Admin: 03/30/18 01:03 Dose: 650 mg Albuterol/Ipratropium (Duoneb 3 Mg/0.5 Mg (3 Ml) Ud) 3 ml IH Q4H PRN PRN Reason: Shortness of Breath Last Admin: 03/30/18 10:35 Dose: 3 ml Heparin Sodium (Porcine) (Heparin) 5,000 units SC Q12 JÚNIOR; Protocol Last Admin: 03/30/18 10:14 Dose: Not Given Sodium Chloride (Sodium Chloride 0.9%) 1,000 mls @ 80 mls/hr IV .[id number] JÚNIOR Last Admin: 03/29/18 14:40 Dose: 80 mls/hr Meropenem/Sodium Chloride (Merrem Iv 500 Mg/Ns 50 Ml) 500 mg in 50 mls @ 100 mls/hr IVPB Q8 JÚNIOR; Protocol Stop: 04/08/18 06:01 Last Admin: 03/30/18 06:00 Dose: 100 mls/hr Insulin Human Lispro (Humalog Low) 0 units SC ACHS JÚNIOR; Protocol Last Admin: 03/30/18 09:15 Dose: Not Given Pantoprazole Sodium (Protonix Inj) 40 mg IVP DAILY [facility] Last Admin: 03/30/18 10:26 Dose: 40 mg Physical Exam - Constitutional Appears: Well, No Acute Distress - Head Exam Head Exam: ATRAUMATIC, NORMAL INSPECTION - Eye Exam Eye Exam: EOMI. absent: Scleral icterus - ENT Exam ENT Exam: Mucous Membranes Dry. absent: Mucous Membranes Moist - Respiratory Exam Respiratory Exam: Wheezes (faint scattered), NORMAL BREATHING PATTERN. absent: Accessory Muscle Use - Cardiovascular Exam Cardiovascular Exam: REGULAR RHYTHM, RRR - GI/Abdominal Exam GI & Abdominal Exam: Distended, Normal Bowel Sounds, Soft, Tenderness (ttp di ffusely but worse on R w/o gurading; exam limited by obese body habitus). absent: Bruit, Diminished Bowel Sounds, Firm, Guarding, Mass, Organomegaly, Rebound, Rigid - Rectal Exam Rectal Exam: Deferred - Neurological Exam Neurological exam: Alert, CN II-XII Intact - Psychiatric Exam Psychiatric exam: Normal Affect, Normal Mood - Skin Skin Exam: Dry, Warm Results - Vital Signs Recent Vital Signs: Last Vital Signs Temp 98 F 03/30/18 04:00 Pulse 102 H 03/30/18 08:10 Resp 32 H 03/30/18 08:00 BP 118/80 03/30/18 07:01 Pulse Ox 97 03/30/18 08:10 - Labs Result Diagrams: 03/30/18 05:00 03/30/18 05:00 Labs: Laboratory Results - last 24 hr 03/29/18 03/29/18 03/29/18 10:55 11:00 11:29 WBC RBC Hgb Hct MCV MCH MCHC RDW Plt Count MPV pO2 VBG pH VBG pCO2 VBG HCO3 VBG Total CO2 VBG O2 Sat (Calc) VBG Base Excess VBG Potassium Sodium Chloride Glucose Lactate FiO2 Potassium Carbon Dioxide Anion Gap BUN Creatinine Est GFR ( Amer) Est GFR (Non-Af Amer) POC Glucose (mg/dL) 312 H Random Glucose Calcium Phosphorus Magnesium Total Bilirubin AST ALT Alkaline Phosphatase Troponin I Total Protein Albumin Globulin Albumin/Globulin Ratio Amylase Lipase Venous Blood Potassium Urine RBC Tntc Urine WBC 2 - 5 Ur Epithelial Cells 0 - 2 Urine Bacteria Many Influenza Typ A,B (EIA) Negative for flu a/b 03/29/18 03/29/18 03/29/18 11:30 12:30 13:58 WBC RBC Hgb Hct MCV MCH MCHC RDW Plt Count MPV pO2 109 H VBG pH 7.35 VBG pCO2 29.0 L VBG HCO3 16.0 L VBG Total CO2 16.9 L VBG O2 Sat (Calc) 98.5 H VBG Base Excess -8.2 L VBG Potassium 3.2 L Sodium 134.0 Chloride 105.0 Glucose 369 H Lactate 4.0 H* FiO2 21.0 Potassium Carbon Dioxide Anion Gap BUN Creatinine Est GFR ( Amer) Est GFR (Non-Af Amer) POC Glucose (mg/dL) 372 H 315 H Random Glucose Calcium Phosphorus Magnesium Total Bilirubin AST ALT Alkaline Phosphatase Troponin I Total Protein Albumin Globulin Albumin/Globulin Ratio Amylase Lipase Venous Blood Potassium 3.2 L Urine RBC Urine WBC Ur Epithelial Cells Urine Bacteria Influenza Typ A,B (EIA) 03/29/18 03/29/18 03/29/18 15:26 16:40 17:22 WBC RBC Hgb Hct MCV MCH MCHC RDW Plt Count MPV pO2 VBG pH VBG pCO2 VBG HCO3 VBG Total CO2 VBG O2 Sat (Calc) VBG Base Excess VBG Potassium Sodium Chloride Glucose Lactate FiO2 Potassium Carbon Dioxide Anion Gap BUN Creatinine Est GFR ( Amer) Est GFR (Non-Af Amer) POC Glucose (mg/dL) 248 H 209 H Random Glucose Calcium Phosphorus Magnesium Total Bilirubin AST ALT Alkaline Phosphatase Troponin I 0.08 D Total Protein Albumin Globulin Albumin/Globulin Ratio Amylase 35 Lipase 34 Venous Blood Potassium Urine RBC Urine WBC Ur Epithelial Cells Urine Bacteria Influenza Typ A,B (EIA) 03/30/18 03/30/18 03/30/18 05:00 05:00 07:11 WBC 22.7 H D RBC 3.51 Hgb 9.8 L D Hct 29.4 L MCV 83.8 MCH 27.9 MCHC 33.3 RDW 14.0 Plt Count 282 MPV 9.2 pO2 VBG pH VBG pCO2 VBG HCO3 VBG Total CO2 VBG O2 Sat (Calc) VBG Base Excess VBG Potassium Sodium 137 Chloride 110 H Glucose Lactate FiO2 Potassium 4.2 Carbon Dioxide 18 L Anion Gap 13 BUN 26 H Creatinine 1.7 H Est GFR ( Amer) 51 Est GFR (Non-Af Amer) 42 POC Glucose (mg/dL) 235 H Random Glucose 223 H Calcium 7.4 L Phosphorus 2.8 Magnesium 1.5 L Total Bilirubin 1.6 H AST 28 ALT 25 Alkaline Phosphatase 81 Troponin I Total Protein 6.6 Albumin 3.0 Globulin 3.6 Albumin/Globulin Ratio 0.8 L Amylase Lipase Venous Blood Potassium Urine RBC Urine WBC Ur Epithelial Cells Urine Bacteria Influenza Typ A,B (EIA) Assessment & Plan - Assessment and Plan (Free Text) Assessment: 53 yo M admitted to ICU for Sepsis related to Pyelonephritis with obstructing renal calculus. GI consulted for elevated bilirubin. # Abnormal Liver Tests: Mild cholestatic patter. Suspect cholestasis of sepsis given clinical presentation. However, will further investigate for potential gall stones with US and screen for HCV. Plan: - Abd US - Screen for HCV - Monitor labs daily - Treatment of Sepsis per primary/ID - Supportive care Pt discussed with Dr. Carrero; see attestation for further recs/changes Earl Shine, PGY-4 <Nara Carrero V - Last Filed: 03/30/18 14:48> Meds - Medications Medications: Current Medications Acetaminophen (Tylenol 325mg Tab) 975 mg PO ONCE PRN PRN Reason: Fever >100.4 F Last Admin: 03/29/18 10:52 Dose: 975 mg Acetaminophen (Tylenol 325mg Tab) 650 mg PO Q4H PRN PRN Reason: Fever >100.4 F Last Admin: 03/30/18 01:03 Dose: 650 mg Albuterol/Ipratropium (Duoneb 3 Mg/0.5 Mg (3 Ml) Ud) 3 ml IH Q4H PRN PRN Reason: Shortness of Breath Last Admin: 03/30/18 10:35 Dose: 3 ml Heparin Sodium (Porcine) (Heparin) 5,000 units SC Q12 JÚNIOR; Protocol Last Admin: 03/30/18 10:14 Dose: Not Given Sodium Chloride (Sodium Chloride 0.9%) 1,000 mls @ 80 mls/hr IV .[id number] JÚNIOR Last Admin: 03/29/18 14:40 Dose: 80 mls/hr Meropenem/Sodium Chloride (Merrem Iv 500 Mg/Ns 50 Ml) 500 mg in 50 mls @ 100 mls/hr IVPB Q8 JÚNIOR; Protocol Stop: 04/08/18 06:01 Last Admin: 03/30/18 06:00 Dose: 100 mls/hr Insulin Human Lispro (Humalog Low) 0 units SC ACHS JÚNIOR; Protocol Last Admin: 03/30/18 12:29 Dose: Not Given Pantoprazole Sodium (Protonix Inj) 40 mg IVP DAILY J[facility]OR Last Admin: 03/30/18 10:26 Dose: 40 mg Results - Vital Signs Recent Vital Signs: Last Vital Signs Temp 98 F 03/30/18 04:00 Pulse 120 H 03/30/18 13:40 Resp 40 H 03/30/18 13:40 BP 122/76 03/30/18 13:00 Pulse Ox 97 03/30/18 13:40 - Labs Result Diagrams: 03/30/18 05:00 03/30/18 05:00 Labs: Laboratory Results - last 24 hr 03/29/18 03/29/18 03/29/18 11:29 12:30 15:26 WBC RBC Hgb Hct MCV MCH MCHC RDW Plt Count MPV Sodium Potassium Chloride Carbon Dioxide Anion Gap BUN Creatinine Est GFR ( Amer) Est GFR (Non-Af Amer) POC Glucose (mg/dL) 312 H 372 H 248 H Random Glucose Calcium Phosphorus Magnesium Total Bilirubin AST ALT Alkaline Phosphatase Troponin I Total Protein Albumin Globulin Albumin/Globulin Ratio Amylase Lipase 03/29/18 03/29/18 03/30/18 16:40 17:22 05:00 WBC 22.7 H D RBC 3.51 Hgb 9.8 L D Hct 29.4 L MCV 83.8 MCH 27.9 MCHC 33.3 RDW 14.0 Plt Count 282 MPV 9.2 Sodium Potassium Chloride Carbon Dioxide Anion Gap BUN Creatinine Est GFR ( Amer) Est GFR (Non-Af Amer) POC Glucose (mg/dL) 209 H Random Glucose Calcium Phosphorus Magnesium Total Bilirubin AST ALT Alkaline Phosphatase Troponin I 0.08 D Total Protein Albumin Globulin Albumin/Globulin Ratio Amylase 35 Lipase 34 03/30/18 03/30/18 03/30/18 05:00 07:11 12:53 WBC RBC Hgb Hct MCV MCH MCHC RDW Plt Count MPV Sodium 137 Potassium 4.2 Chloride 110 H Carbon Dioxide 18 L Anion Gap 13 BUN 26 H Creatinine 1.7 H Est GFR ( Amer) 51 Est GFR (Non-Af Amer) 42 POC Glucose (mg/dL) 235 H 251 H Random Glucose 223 H Calcium 7.4 L Phosphorus 2.8 Magnesium 1.5 L Total Bilirubin 1.6 H AST 28 ALT 25 Alkaline Phosphatase 81 Troponin I Total Protein 6.6 Albumin 3.0 Globulin 3.6 Albumin/Globulin Ratio 0.8 L Amylase Lipase Attending/Attestation - Attestation I have personally seen and examined this patient.: Yes I have fully participated in the care of the patient.: Yes I have reviewed all pertinent clinical information: Yes Notes (Text): This is an addendum to GI consult report dictated by the GI Fellow. The patient was seen and evaluated earlier. Medical records, lab studies, imagings were reviewed. Last 24 hours events reviewed. Agreed with the above treatment plan as outlined in GI Fellow's notes with the addition of the following This is a 53 year old patient admitted with sepsis related to pyelonephritis with obstructing renal calculus. Mildly elevated LFTs mainly total bilirubin 2.5, ALK 167. Now improved ALK to normal, and total bilirubin has come down to 1.6. Would request direct bilirubin. Hepatitis profile and US scan to further evaluate. Followup LFT. 03/30/18 14:41
--- NOTE | 2018-03-30 11:48 | CT ---
Date of service: 03/29/2018 PROCEDURE: CT Abdomen and Pelvis . HISTORY: r/o abdominal abscess COMPARISON: No prior study available for comparison the TECHNIQUE: Contiguous axial images of the abdomen and pelvis performed without oral or intravenous contrast material. Coronal and Sagittal reformats generated. Radiation dose: Total exam DLP = 1220.72 mGy-cm. This CT exam was performed using one or more of the following dose reduction techniques: Automated exposure control, adjustment of the mA and/or kV according to patient size, and/or use of iterative reconstruction technique. FINDINGS: LOWER THORAX: Heart size within range of normal. No significant pericardial effusion. Small calcified granuloma right lateral lower lung field near the pleural surface.. There is some minimal linear scarring associate with the tiny calcification left lingular region. LIVER: Liver is enlarged measuring over 22 cm in CC dimension. Liver exhibits normal size attenuation pattern without masses collections or calcifications. GALLBLADDER AND BILE DUCTS: Unremarkable. PANCREAS: Unremarkable. No mass. No ductal dilatation. SPLEEN: Spleen exhibits normal size and attenuation pattern without masses collections or calcifications. ADRENALS: No adrenal lesions. KIDNEYS AND URETERS: There is a obstructing proximal left ureteral calculus that measures approximately 8.3 mm. Dilatation of the proximal ureter renal pelvis and collecting system of with infiltration changes in the periureteric fat as well as perinephric fat. There also appears to be a small amount of fluid in the perinephric space as well.. Rule out pyelonephritis. Small approximately 7 mm the nonobstructing calculus seen in the lower pole collecting system right kidney measuring. No evidence of right-sided hydronephrosis. BLADDER: Urinary bladder is collapsed about an in situ unclamped Campbell catheter. Small amount of air is present within the urinary bladder. The urinary bladder wall is thickened in part due to collapse and possibly muscular hypertrophy however possibility of a cystitis given a small amount of intraluminal air not excluded. Clinical correlation with urinalysis. Other intrinsic-invasive wall lesions also not excluded. REPRODUCTIVE: Unremarkable as visualized. APPENDIX: Appendix not seen with complete certainty however no evidence of inflammatory changes right lower quadrant of the abdomen. BOWEL: Evaluation of the bowel is somewhat limited due to the lack of oral contrast material. The PERITONEUM: Unremarkable. No fluid collection. No free air. Moderately large fat containing umbilical hernia. Small right is sided fat containing left inguinal hernia LYMPH NODES: Unremarkable. No enlarged lymph nodes. VASCULATURE: Unremarkable. No aortic aneurysm. Minimal o aortic atherosclerotic calcification or mural plaque present. BONES: Mild multilevel degenerative spondylosis of the lower thoracic and lumbar spine. OTHER FINDINGS: None. IMPRESSION: 8.3 mm obstructing calculus proximal left ureter. Mild left-sided hydronephrosis with periureteric and perinephric infiltration and what appears represent a small amount of perinephric fluid. Rule out left-sided pyelonephritis. Nonobstructing approximately 7 mm calculus lower pole collecting system right kidney.. In situ unclamped Campbell catheter within a collapsed urinary bladder which in part accounts for thick-walled the appearance. Muscular hypertrophy may contribute. Possibility of cystitis given the small amount air within the urinary bladder (which could also be related to instrumentation) should be excluded with urinalysis of. Other intrinsic/invasive wall lesion not excluded. Hepatomegaly. Moderately large fat containing umbilical hernia. Small calcified granuloma right lower lung field.
--- NOTE | 2018-03-30 13:24 | PN ---
DATE: 03/30/2018 FOLLOWUP NOTE SUBJECTIVE: He is comfortable in bed, in no acute distress. No nausea, no vomiting. CT chest, abdomen, and pelvis showed 8 mm obstructing calculus in the left ureter with left hydronephrosis. Currently, on IV antibiotics. Urine growing gram-negative rods, evaluated by ID, Dr. Esposito. REVIEW OF SYSTEMS: Denies abdominal pain. No nausea, no vomiting. Still feeling weak. Wants to drink water. He is currently nothing by mouth for cystoscopy by Dr. Dykes today. Rest of 12-point review of systems reviewed and negative. MEDICATIONS: Tylenol 650 every six hours as needed, heparin 5000 every 12 hours, meropenem, Protonix 40 mg daily, IV fluid at 80 mL an hour, DuoNebs every four hours as needed. PHYSICAL EXAMINATION GENERAL: Comfortable in bed, in no acute distress, morbidly obese. VITAL SIGNS: Heart rate is 102 per minute, respiratory rate 32 per minute, oxygen saturation 98% on room air, blood pressure 118/80. HEENT: Pallor positive. NECK: No lymphadenopathy. CHEST: Air entry present and equal bilaterally. No added sound. CARDIOVASCULAR: S1, S2 normal. No murmur, no gallop. ABDOMEN: Obese. No hepatosplenomegaly. EXTREMITIES: No edema. LABORATORY DATA: White count 22,000, hemoglobin 9.8, hematocrit 29.4, platelets 282. Sodium 137, potassium 4.2, creatinine 1.7. Electrolytes within normal limits. Bilirubin 1.6, declined since yesterday. ASSESSMENT: 1. Urosepsis. 2. Obstructing calculus, left ureter. 3. Anemia. 4. Leukocytosis. 5. Diabetes mellitus, type 2. PLAN: He will be going for cystoscopy by Dr. Dykes today. Continue IV fluids. Urosepsis, gram-negative rods, currently on Zosyn. ID, Dr. Esposito, consult appreciated. Consult with Dr. Dykes appreciated. We will continue DVT prophylaxis with heparin 5000 every 12 hours. Continue bronchodilators, Protonix IV daily. improved slightly. Discussed with the ICU staff. Discussed with the patient. Gloria Granados MD
[2018-03-30] MEDS ORDERED: Iohexol 240 (50 ml) ONE (14:30)
[2018-03-30] MEDS ORDERED: Lidocaine 2% Inj (20ml) ONE (14:30)
[2018-03-30] MEDS ORDERED: Midazolam 2 MG/2 ML VIAL ONE (15:07)
[2018-03-30] MEDS ORDERED: Sevoflurane - Inhalation Anesthetic Liq (250 ml) ONE (15:10)
[2018-03-30] MEDS ORDERED: Etomidate 20 mg/10ml Inj IV ONE (15:17)
[2018-03-30] MEDS ORDERED: Lidocaine 1% Inj (20ml) ONE (15:20)
--- NOTE | 2018-03-30 15:29 | CP.CCUPN ---
<Brenden Robertson - Last Filed: 03/30/18 15:47> CCU Subjective - Physician Review Subjective (Free Text): Brenden Robertson, PGY1 ICU Progress Note for Dr. Wan Patient was seen and examined at bedside this morning. He had a Tmax of 100.4 overnight. Mathew is currently afebrile. BP is normotensive. He is AAOx3. Still endorses burning with urination and occasional shortness of breath. Denies cp, nausea, vomiting, diarrhea, chills. A full 12 point ROS was conducted and unremarkable except as stated above. CCU Objective - Vital Signs / Intake & Output Vital Signs (Last 4 hours): Vital Signs Pulse Resp BP Pulse Ox 03/30/18 13:40 120 H 40 H 97 03/30/18 13:30 121 H 48 H 98 03/30/18 13:20 121 H 99 03/30/18 13:14 120 H 03/30/18 13:10 124 H 22 99 03/30/18 13:00 119 H 28 H 122/76 98 03/30/18 12:50 119 H 26 H 98 03/30/18 12:40 120 H 28 H 98 03/30/18 12:33 126 H 39 H 132/72 99 03/30/18 12:30 124 H 31 H 98 03/30/18 12:20 126 H 24 98 03/30/18 12:10 128 H 26 H 99 03/30/18 12:02 139 H 03/30/18 12:00 123 H 27 H 97 03/30/18 11:50 126 H 28 H 98 03/30/18 11:40 127 H 99 03/30/18 11:30 130 H 33 H 98 Intake and Output (Last 8hrs): Intake & Output 03/30/18 03/30/18 03/30/18 06:59 14:59 22:59 Intake Total 1260 Output Total 450 Balance 810 Weight 124.738 kg Intake: IV 760 0.9 ns 560 merrem 200 Oral 500 Output: Urine 450 Urethral (Campbell) 450 Other: # Bowel Movements 3 - Physical Exam Head: Positive for: Atraumatic, Normocephalic Pupils: Positive for: PERRL Extroacular Muscles: Positive for: EOMI Conjunctiva: Positive for: Normal Mouth: Positive for: Moist Mucous Membranes Respiratory/Chest: Positive for: Clear to Auscultation, Good Air Exchange, Tachypneic. Negative for: Wheezes, Rales, Rhonchi, Tender to Palpation Cardiovascular: Positive for: Normal S1, S2, Peripheal Pulses Present. Negative for: Murmurs, Rub, Gallop Abdomen: Positive for: Normal Bowel Sounds. Negative for: Tenderness, Distention, Mass/Organomegaly Genitourinary Male: Positive for: Other (Campbell is in place) Upper Extremity: Positive for: Normal Inspection, Normal ROM, NORMAL PULSES, Neurovascularly Intact, Capillary Refill < 2s. Negative for: Cyanosis, Edema, Temperature Abnormalties Lower Extremity: Positive for: Normal Inspection, NORMAL PULSES, Neurovascularly Intact, Capillary Refill < 2 s. Negative for: Edema Skin: Positive for: Warm, Normal Color, Diaphoretic. Negative for: Rashes Psychiatric: Positive for: Alert, Oriented x 3, Normal Insight, Normal Concent ration - Medications Active Medications: Active Medications Generic Name Dose Route Start Last Admin Trade Name Freq PRN Reason Stop Dose Admin Acetaminophen 975 mg 03/29/18 10:19 03/29/18 10:52 Tylenol 325mg Tab PO 975 mg ONCE PRN Administration Fever >100.4 F Acetaminophen 650 mg 03/29/18 14:30 03/30/18 01:03 Tylenol 325mg Tab PO 650 mg Q4H PRN Administration Fever >100.4 F Albuterol/Ipratropium 3 ml 03/30/18 10:05 03/30/18 10:35 Duoneb 3 Mg/0.5 Mg (3 Ml) Ud IH 3 ml Q4H PRN Administration Shortness of Breath Heparin Sodium (Porcine) 5,000 units 03/29/18 22:00 03/30/18 10:14 Heparin SC Not Given Q12 JÚNIOR Protocol Sodium Chloride 1,000 mls @ 80 mls/hr 03/29/18 14:30 03/29/18 14:40 Sodium Chloride 0.9% IV 80 mls/hr .[id number] JÚNIOR Administration Meropenem/Sodium Chloride 500 mg in 50 mls @ 100 mls/hr 03/30/18 06:00 03/30/18 14:49 Merrem Iv 500 Mg/Ns 50 Ml IVPB 04/08/18 06:01 100 mls/hr Q8 JÚNIOR Administration Protocol Insulin Human Lispro 0 units 03/29/18 22:00 03/30/18 12:29 Humalog Low SC Not Given ACHS [facility] Protocol Pantoprazole Sodium 40 mg 03/30/18 10:00 03/30/18 10:26 Protonix Inj IVP 40 mg DAILY JÚNIOR Administration - Patient Studies Lab Studies: Microbiology Studies 03/29/18 11:00 Urine Culture - Preliminary Urine,Campbell Gram Negative Sky 03/29/18 10:15 Blood Culture - Preliminary Blood Gram Negative Sky Gram Stain - Final 03/29/18 10:30 Blood Culture - Preliminary Blood Gram Negative Sky Gram Stain - Final Lab Studies 03/30/18 03/30/18 03/30/18 Range/Units 12:53 07:11 05:00 WBC (4.5-11.0) 10^3/uL RBC (3.5-6.1) 10^6/uL Hgb (14.0-18.0) g/dL Hct (42.0-52.0) % MCV (80.0-105.0) fl MCH (25.0-35.0) pg MCHC (31.0-37.0) g/dl RDW (11.5-14.5) % Plt Count (120.0-450.0) 10^3/uL MPV (7.0-11.0) fl Sodium 137 (132-148) mmol/L Potassium 4.2 (3.6-5.0) mmol/L Chloride 110 H (98-107) mmol/L Carbon Dioxide 18 L (21-33) mmol/L Anion Gap 13 (10-20) BUN 26 H (7-21) mg/dL Creatinine 1.7 H (0.8-1.5) mg/dl Est GFR ( Amer) 51 Est GFR (Non-Af Amer) 42 POC Glucose (mg/dL) 251 H 235 H (65-110) mg/dL Random Glucose 223 H (70-110) mg/dL Calcium 7.4 L (8.4-10.5) mg/dL Phosphorus 2.8 (2.5-4.5) mg/dL Magnesium 1.5 L (1.7-2.2) mg/dL Total Bilirubin 1.6 H (0.2-1.3) mg/dL AST 28 (17-59) U/L ALT 25 (7-56) U/L Alkaline Phosphatase 81 (38-126) U/L Troponin I ng/mL Total Protein 6.6 (5.8-8.3) g/dL Albumin 3.0 (3.0-4.8) g/dL Globulin 3.6 gm/dL Albumin/Globulin Ratio 0.8 L (1.1-1.8) Amylase (35-125) U/L Lipase (23-300) U/L 03/30/18 03/29/18 03/29/18 Range/Units 05:00 17:22 16:40 WBC 22.7 H D (4.5-11.0) 10^3/uL RBC 3.51 (3.5-6.1) 10^6/uL Hgb 9.8 L D (14.0-18.0) g/dL Hct 29.4 L (42.0-52.0) % MCV 83.8 (80.0-105.0) fl MCH 27.9 (25.0-35.0) pg MCHC 33.3 (31.0-37.0) g/dl RDW 14.0 (11.5-14.5) % Plt Count 282 (120.0-450.0) 10^3/uL MPV 9.2 (7.0-11.0) fl Sodium (132-148) mmol/L Potassium (3.6-5.0) mmol/L Chloride (98-107) mmol/L Carbon Dioxide (21-33) mmol/L Anion Gap (10-20) BUN (7-21) mg/dL Creatinine (0.8-1.5) mg/dl Est GFR ( Amer) Est GFR (Non-Af Amer) POC Glucose (mg/dL) 209 H (65-110) mg/dL Random Glucose (70-110) mg/dL Calcium (8.4-10.5) mg/dL Phosphorus (2.5-4.5) mg/dL Magnesium (1.7-2.2) mg/dL Total Bilirubin (0.2-1.3) mg/dL AST (17-59) U/L ALT (7-56) U/L Alkaline Phosphatase (38-126) U/L Troponin I 0.08 D ng/mL Total Protein (5.8-8.3) g/dL Albumin (3.0-4.8) g/dL Globulin gm/dL Albumin/Globulin Ratio (1.1-1.8) Amylase 35 (35-125) U/L Lipase 34 (23-300) U/L 03/29/18 03/29/18 03/29/18 Range/Units 15:26 12:30 11:29 WBC (4.5-11.0) 10^3/uL RBC (3.5-6.1) 10^6/uL Hgb (14.0-18.0) g/dL Hct (42.0-52.0) % MCV (80.0-105.0) fl MCH (25.0-35.0) pg MCHC (31.0-37.0) g/dl RDW (11.5-14.5) % Plt Count (120.0-450.0) 10^3/uL MPV (7.0-11.0) fl Sodium (132-148) mmol/L Potassium (3.6-5.0) mmol/L Chloride (98-107) mmol/L Carbon Dioxide (21-33) mmol/L Anion Gap (10-20) BUN (7-21) mg/dL Creatinine (0.8-1.5) mg/dl Est GFR ( Amer) Est GFR (Non-Af Amer) POC Glucose (mg/dL) 248 H 372 H 312 H (65-110) mg/dL Random Glucose (70-110) mg/dL Calcium (8.4-10.5) mg/dL Phosphorus (2.5-4.5) mg/dL Magnesium (1.7-2.2) mg/dL Total Bilirubin (0.2-1.3) mg/dL AST (17-59) U/L ALT (7-56) U/L Alkaline Phosphatase (38-126) U/L Troponin I ng/mL Total Protein (5.8-8.3) g/dL Albumin (3.0-4.8) g/dL Globulin gm/dL Albumin/Globulin Ratio (1.1-1.8) Amylase (35-125) U/L Lipase (23-300) U/L Laboratory Results - last 24 hr 03/29/18 03/29/18 03/29/18 11:29 12:30 15:26 WBC RBC Hgb Hct MCV MCH MCHC RDW Plt Count MPV Sodium Potassium Chloride Carbon Dioxide Anion Gap BUN Creatinine Est GFR ( Amer) Est GFR (Non-Af Amer) POC Glucose (mg/dL) 312 H 372 H 248 H Random Glucose Calcium Phosphorus Magnesium Total Bilirubin AST ALT Alkaline Phosphatase Troponin I Total Protein Albumin Globulin Albumin/Globulin Ratio Amylase Lipase 03/29/18 03/29/18 03/30/18 16:40 17:22 05:00 WBC 22.7 H D RBC 3.51 Hgb 9.8 L D Hct 29.4 L MCV 83.8 MCH 27.9 MCHC 33.3 RDW 14.0 Plt Count 282 MPV 9.2 Sodium Potassium Chloride Carbon Dioxide Anion Gap BUN Creatinine Est GFR ( Amer) Est GFR (Non-Af Amer) POC Glucose (mg/dL) 209 H Random Glucose Calcium Phosphorus Magnesium Total Bilirubin AST ALT Alkaline Phosphatase Troponin I 0.08 D Total Protein Albumin Globulin Albumin/Globulin Ratio Amylase 35 Lipase 34 03/30/18 03/30/18 03/30/18 05:00 07:11 12:53 WBC RBC Hgb Hct MCV MCH MCHC RDW Plt Count MPV Sodium 137 Potassium 4.2 Chloride 110 H Carbon Dioxide 18 L Anion Gap 13 BUN 26 H Creatinine 1.7 H Est GFR ( Amer) 51 Est GFR (Non-Af Amer) 42 POC Glucose (mg/dL) 235 H 251 H Random Glucose 223 H Calcium 7.4 L Phosphorus 2.8 Magnesium 1.5 L Total Bilirubin 1.6 H AST 28 ALT 25 Alkaline Phosphatase 81 Troponin I Total Protein 6.6 Albumin 3.0 Globulin 3.6 Albumin/Globulin Ratio 0.8 L Amylase Lipase Fingerstick Blood Sugar Results: 235 Review of Systems - Review of Systems All systems: reviewed and no additional remarkable complaints except (as per HPI) Critical Care Progress Note - Extremities/Vascular Does the Patient have a Central Venous Catheter?: No Does the Patient need a Central Venous Catheter?: No Does the Patient have a Campbell Catheter?: Yes Does the Patient need a Campbell Catheter?: Yes Catheter Insertion Criteria: Patient has acute urinary retention or bladder outlet obstruction - Prophylaxis GI Prophylaxis GI: PPI - Prophylaxis DVT Prophylaxis DVT: Heparin SQ - Nutrition Nutrition: Nutrition Category Date Time Status NPO Diet [DIET] Diets 03/30/18 Breakfast Ordered Assessment/Plan - Assessment and Plan (Free Text) Assessment: Patient is a 53 y/o M with PMHx of HTN and DM2 who presents to the ED via EMS with complaints of mild abdominal pain with cough and shortness of breath. In the ED, code sepsis was called. Patient was noted to be hypotensive and ICU was consulted for evaluation of sepsis. Patient had CT Abdomen/Pelvis which indicated 8.3 mm obstructing stone in the left ureter with mild L-sided hydronephrosis and a 7 mm non-obstructing stone in the right kidney. Urology was consulted for evaluation. Plan: Neuro: - AAOx3 - Tmax 100.4 overnight; now afebrile Cardio: - Normotensive - Maintain MAP > 65 - Initially hypotensive in ED; given x4 L IVF. Evaluated by ICU and patient's BP responded adequately. - Hx of HTN Pulm: - Patient is saturating well - Maintain SaO2 > 92% GI: - GI ppx - HHD Renal - RAMON; BUN/Cr is 26/1.7 - replete lytes as needed : - Urosepsis in the setting of Obstructing L-Ureter Nephrolithiasis with Mild Hydronephrosis - CT Abdomen/Pelvis (03/29): 8.3 mm obstructing stone in the left ureter with mild L-sided hydronephrosis and a 7 mm non-obstructing stone in the right kidney - As per urology, patient pending cystoscopy today for evaluation - Urology was consulted. Recs appreciated Heme: - Hgb is 9.8, decreased from 12.4; this is likely dilutional effect due to fluid boluses. No active bleeding. - DVT ppx Endo: - Maintain euglycemia; target range 140-180 blood glucose as per NICE-SUGAR trial - ISS (low) - Accuchecks ACHS - Hx of DM ID: - Urosepsis with Obstructing Nephrolithiasis - c/w maintenance fluids - c/w merropenem (Day 2) - Blood cx grew gram negative rods x2 (prelim) - Urine Cx grew gram negative rods - leukocytosis is trending upwards - UA: large blood, +nitrate, +rbc - ID on consult. Recs appreciated Dispo: Patient will go for cystoscopy today for evaluation of obstructing nephrolithiasis. Monitor in the ICU. Case was discussed and reviewed with Attending Physician, Dr. Wan <Yareli Wan - Last Filed: 03/30/18 17:51> CCU Objective - Vital Signs / Intake & Output Vital Signs (Last 4 hours): Vital Signs Pulse Resp BP Pulse Ox 03/30/18 17:20 149 H 34 H 98 03/30/18 17:16 152 H 35 H 116/73 98 03/30/18 17:10 158 H 35 H 99 03/30/18 17:03 174 H 38 H 138/60 97 03/30/18 17:00 181 H 38 H 93 L 03/30/18 16:50 181 H 41 H 96 03/30/18 16:47 181 H 55 H 179/86 H 99 03/30/18 16:40 172 H 100 H 94 L 03/30/18 16:36 167 H 35 H 117/88 90 L 03/30/18 16:30 147 H 40 H 96 03/30/18 16:20 132 H 38 H 97 03/30/18 16:13 127 H 38 H 133/89 96 03/30/18 16:11 45 H 95 03/30/18 15:20 116 H 25 H 97 03/30/18 15:10 118 H 29 H 97 03/30/18 15:00 121 H 26 H 115/70 95 03/30/18 14:50 125 H 27 H 97 03/30/18 14:40 119 H 29 H 97 03/30/18 14:30 118 H 18 94 L 03/30/18 14:20 108 H 59 H 97 03/30/18 14:10 118 H 34 H 96 03/30/18 14:00 120 H 115/70 99 03/30/18 13:50 119 H 29 H 98 Intake and Output (Last 8hrs): Intake & Output 03/30/18 03/30/18 03/30/18 06:59 14:59 22:59 Intake Total 1260 Output Total 450 Balance 810 Weight 124.738 kg Intake: IV 760 0.9 ns 560 merrem 200 Oral 500 Output: Urine 450 Urethral (Campbell) 450 Other: # Bowel Movements 3 - Medications Active Medications: Active Medications Generic Name Dose Route Start Last Admin Trade Name Freq PRN Reason Stop Dose Admin Acetaminophen 975 mg 03/29/18 10:19 03/29/18 10:52 Tylenol 325mg Tab PO 975 mg ONCE PRN Administration Fever >100.4 F Albuterol/Ipratropium 3 ml 03/30/18 10:05 03/30/18 10:35 Duoneb 3 Mg/0.5 Mg (3 Ml) Ud IH 3 ml Q4H PRN Administration Shortness of Breath Heparin Sodium (Porcine) 5,000 units 03/29/18 22:00 03/30/18 10:14 Heparin SC Not Given Q12 JÚNIOR Protocol Sodium Chloride 1,000 mls @ 80 mls/hr 03/29/18 14:30 03/29/18 14:40 Sodium Chloride 0.9% IV 80 mls/hr .[id number] JÚNIOR Administration Meropenem/Sodium Chloride 500 mg in 50 mls @ 100 mls/hr 03/30/18 06:00 03/30/18 14:49 Merrem Iv 500 Mg/Ns 50 Ml IVPB 04/08/18 06:01 100 mls/hr Q8 JÚNIOR Administration Protocol Acetaminophen 1,000 mg in 100 mls @ 400 mls/hr 03/30/18 17:05 03/30/18 17:15 Ofirmev IVPB 04/01/18 17:06 400 mls/hr Q6H PRN Administration Temperature Insulin Human Lispro 0 units 03/29/18 22:00 03/30/18 12:29 Humalog Low SC Not Given ACHS [facility] Protocol Morphine Sulfate 2 mg 03/30/18 16:27 03/30/18 16:00 Morphine IVP 2 mg Q6H PRN Administration Pain, moderate (4-7) Pantoprazole Sodium 40 mg 03/30/18 10:00 03/30/18 10:26 Protonix Inj IVP 40 mg DAILY JÚNIOR Administration - Patient Studies Lab Studies: Microbiology Studies 03/29/18 11:00 Urine Culture - Preliminary Urine,Campbell Gram Negative Sky 03/29/18 10:15 Blood Culture - Preliminary Blood Gram Negative Sky Gram Stain - Final 03/29/18 10:30 Blood Culture - Preliminary Blood Gram Negative Sky Gram Stain - Final Lab Studies 03/30/18 03/30/18 03/30/18 Range/Units 12:53 07:11 05:00 WBC (4.5-11.0) 10^3/uL RBC (3.5-6.1) 10^6/uL Hgb (14.0-18.0) g/dL Hct (42.0-52.0) % MCV (80.0-105.0) fl MCH (25.0-35.0) pg MCHC (31.0-37.0) g/dl RDW (11.5-14.5) % Plt Count (120.0-450.0) 10^3/uL MPV (7.0-11.0) fl Sodium (132-148) mmol/L Potassium (3.6-5.0) mmol/L Chloride (98-107) mmol/L Carbon Dioxide (21-33) mmol/L Anion Gap (10-20) BUN (7-21) mg/dL Creatinine (0.8-1.5) mg/dl Est GFR ( Amer) Est GFR (Non-Af Amer) POC Glucose (mg/dL) 251 H 235 H (65-110) mg/dL Random Glucose (70-110) mg/dL Calcium (8.4-10.5) mg/dL Phosphorus (2.5-4.5) mg/dL Magnesium (1.7-2.2) mg/dL Total Bilirubin (0.2-1.3) mg/dL Direct Bilirubin 0.4 (0.0-0.4) mg/dL AST (17-59) U/L ALT (7-56) U/L Alkaline Phosphatase (38-126) U/L Total Protein (5.8-8.3) g/dL Albumin (3.0-4.8) g/dL Globulin gm/dL Albumin/Globulin Ratio (1.1-1.8) Procalcitonin (0.19-0.49) NG/ML 03/30/18 03/30/18 03/29/18 Range/Units 05:00 05:00 17:22 WBC 22.7 H D (4.5-11.0) 10^3/uL RBC 3.51 (3.5-6.1) 10^6/uL Hgb 9.8 L D (14.0-18.0) g/dL Hct 29.4 L (42.0-52.0) % MCV 83.8 (80.0-105.0) fl MCH 27.9 (25.0-35.0) pg MCHC 33.3 (31.0-37.0) g/dl RDW 14.0 (11.5-14.5) % Plt Count 282 (120.0-450.0) 10^3/uL MPV 9.2 (7.0-11.0) fl Sodium 137 (132-148) mmol/L Potassium 4.2 (3.6-5.0) mmol/L Chloride 110 H (98-107) mmol/L Carbon Dioxide 18 L (21-33) mmol/L Anion Gap 13 (10-20) BUN 26 H (7-21) mg/dL Creatinine 1.7 H (0.8-1.5) mg/dl Est GFR ( Amer) 51 Est GFR (Non-Af Amer) 42 POC Glucose (mg/dL) 209 H (65-110) mg/dL Random Glucose 223 H (70-110) mg/dL Calcium 7.4 L (8.4-10.5) mg/dL Phosphorus 2.8 (2.5-4.5) mg/dL Magnesium 1.5 L (1.7-2.2) mg/dL Total Bilirubin 1.6 H (0.2-1.3) mg/dL Direct Bilirubin (0.0-0.4) mg/dL AST 28 (17-59) U/L ALT 25 (7-56) U/L Alkaline Phosphatase 81 (38-126) U/L Total Protein 6.6 (5.8-8.3) g/dL Albumin 3.0 (3.0-4.8) g/dL Globulin 3.6 gm/dL Albumin/Globulin Ratio 0.8 L (1.1-1.8) Procalcitonin (0.19-0.49) NG/ML 03/29/18 Range/Units 16:40 WBC (4.5-11.0) 10^3/uL RBC (3.5-6.1) 10^6/uL Hgb (14.0-18.0) g/dL Hct (42.0-52.0) % MCV (80.0-105.0) fl MCH (25.0-35.0) pg MCHC (31.0-37.0) g/dl RDW (11.5-14.5) % Plt Count (120.0-450.0) 10^3/uL MPV (7.0-11.0) fl Sodium (132-148) mmol/L Potassium (3.6-5.0) mmol/L Chloride (98-107) mmol/L Carbon Dioxide (21-33) mmol/L Anion Gap (10-20) BUN (7-21) mg/dL Creatinine (0.8-1.5) mg/dl Est GFR ( Amer) Est GFR (Non-Af Amer) POC Glucose (mg/dL) (65-110) mg/dL Random Glucose (70-110) mg/dL Calcium (8.4-10.5) mg/dL Phosphorus (2.5-4.5) mg/dL Magnesium (1.7-2.2) mg/dL Total Bilirubin (0.2-1.3) mg/dL Direct Bilirubin (0.0-0.4) mg/dL AST (17-59) U/L ALT (7-56) U/L Alkaline Phosphatase (38-126) U/L Total Protein (5.8-8.3) g/dL Albumin (3.0-4.8) g/dL Globulin gm/dL Albumin/Globulin Ratio (1.1-1.8) Procalcitonin 77.67 H (0.19-0.49) NG/ML Laboratory Results - last 24 hr 03/29/18 03/29/18 03/30/18 16:40 17:22 05:00 WBC 22.7 H D RBC 3.51 Hgb 9.8 L D Hct 29.4 L MCV 83.8 MCH 27.9 MCHC 33.3 RDW 14.0 Plt Count 282 MPV 9.2 Sodium Potassium Chloride Carbon Dioxide Anion Gap BUN Creatinine Est GFR ( Amer) Est GFR (Non-Af Amer) POC Glucose (mg/dL) 209 H Random Glucose Calcium Phosphorus Magnesium Total Bilirubin Direct Bilirubin AST ALT Alkaline Phosphatase Total Protein Albumin Globulin Albumin/Globulin Ratio Procalcitonin 77.67 H 03/30/18 03/30/18 03/30/18 05:00 05:00 07:11 WBC RBC Hgb Hct MCV MCH MCHC RDW Plt Count MPV Sodium 137 Potassium 4.2 Chloride 110 H Carbon Dioxide 18 L Anion Gap 13 BUN 26 H Creatinine 1.7 H Est GFR ( Amer) 51 Est GFR (Non-Af Amer) 42 POC Glucose (mg/dL) 235 H Random Glucose 223 H Calcium 7.4 L Phosphorus 2.8 Magnesium 1.5 L Total Bilirubin 1.6 H Direct Bilirubin 0.4 AST 28 ALT 25 Alkaline Phosphatase 81 Total Protein 6.6 Albumin 3.0 Globulin 3.6 Albumin/Globulin Ratio 0.8 L Procalcitonin 03/30/18 12:53 WBC RBC Hgb Hct MCV MCH MCHC RDW Plt Count MPV Sodium Potassium Chloride Carbon Dioxide Anion Gap BUN Creatinine Est GFR ( Amer) Est GFR (Non-Af Amer) POC Glucose (mg/dL) 251 H Random Glucose Calcium Phosphorus Magnesium Total Bilirubin Direct Bilirubin AST ALT Alkaline Phosphatase Total Protein Albumin Globulin Albumin/Globulin Ratio Procalcitonin Critical Care Progress Note - Nutrition Nutrition: Nutrition Category Date Time Status NPO Diet [DIET] Diets 03/30/18 Breakfast Ordered Addendum Addendum: 03/30/18 17:48 MICU ATTENDING ADDENDUM: Patient seen and examined. Case discussed in round with housestaff. Agree with note above with the following additions/exception: 53m with HTN and DM and hx of rneal stones being admitted with septic shock from urosepsis. CT Abd/Pelvis shows hydronephrosis with BL stones/ Although he has responded to fluids and abx, source control is imperative. I have spoke with Urology who will come in to perform cystoscopy with likely stent placement. For now will make NPO, cont abx per ID. GNR growing in blood, await specs. if Bp drop below MAP 65, will insert central line and start levophed Rest of care above Yareli Wan MD Pulmonary Critical Care and Sleep Medicine Critical Care time: 42 mins
--- NOTE | 2018-03-30 15:33 | PCM.URO ---
Urology Progress Note - Objective Lab Studies: Reviewed (pt to or immediatedly) Lab Results Last 24 Hours: Laboratory Results - last 24 hr 03/29/18 03/29/18 03/29/18 11:29 12:30 15:26 WBC RBC Hgb Hct MCV MCH MCHC RDW Plt Count MPV Sodium Potassium Chloride Carbon Dioxide Anion Gap BUN Creatinine Est GFR ( Amer) Est GFR (Non-Af Amer) POC Glucose (mg/dL) 312 H 372 H 248 H Random Glucose Calcium Phosphorus Magnesium Total Bilirubin AST ALT Alkaline Phosphatase Troponin I Total Protein Albumin Globulin Albumin/Globulin Ratio Amylase Lipase 03/29/18 03/29/18 03/30/18 16:40 17:22 05:00 WBC 22.7 H D RBC 3.51 Hgb 9.8 L D Hct 29.4 L MCV 83.8 MCH 27.9 MCHC 33.3 RDW 14.0 Plt Count 282 MPV 9.2 Sodium Potassium Chloride Carbon Dioxide Anion Gap BUN Creatinine Est GFR ( Amer) Est GFR (Non-Af Amer) POC Glucose (mg/dL) 209 H Random Glucose Calcium Phosphorus Magnesium Total Bilirubin AST ALT Alkaline Phosphatase Troponin I 0.08 D Total Protein Albumin Globulin Albumin/Globulin Ratio Amylase 35 Lipase 34 03/30/18 03/30/18 03/30/18 05:00 07:11 12:53 WBC RBC Hgb Hct MCV MCH MCHC RDW Plt Count MPV Sodium 137 Potassium 4.2 Chloride 110 H Carbon Dioxide 18 L Anion Gap 13 BUN 26 H Creatinine 1.7 H Est GFR ( Amer) 51 Est GFR (Non-Af Amer) 42 POC Glucose (mg/dL) 235 H 251 H Random Glucose 223 H Calcium 7.4 L Phosphorus 2.8 Magnesium 1.5 L Total Bilirubin 1.6 H AST 28 ALT 25 Alkaline Phosphatase 81 Troponin I Total Protein 6.6 Albumin 3.0 Globulin 3.6 Albumin/Globulin Ratio 0.8 L Amylase Lipase Intake & Output: Intake & Output 03/29/18 03/30/18 03/30/18 18:59 06:59 18:59 Intake Total 350 1260 Output Total 275 450 Balance 75 810 Weight 264 lb 275 lb Intake: IV 760 0.9 ns 560 merrem 200 Oral 350 500 Output: Urine 275 450 Urethral ([place]bell) 275 450 Other: Voiding Method Indwelling Catheter # Bowel Movements 0 3 Vital Signs: Vital Signs - 24 hr 12/01/18 12/01/18 12/01/18 18:00 18:40 18:46 Temperature Pulse Rate 118 H 115 H 116 H Respiratory 15 28 H Rate Blood Pressure 106/68 O2 Sat by Pulse 98 99 Oximetry 03/29/18 03/29/18 03/29/18 18:50 19:00 19:10 Temperature Pulse Rate 116 H 113 H 112 H Respiratory 28 H 16 25 H Rate Blood Pressure 97/62 L O2 Sat by Pulse 97 98 96 Oximetry 03/29/18 03/29/18 03/29/18 19:20 19:30 19:40 Temperature Pulse Rate 111 H 112 H 110 H Respiratory 20 22 Rate Blood Pressure O2 Sat by Pulse 97 97 96 Oximetry 03/29/18 03/29/18 03/29/18 19:50 20:00 20:10 Temperature 97.7 F Pulse Rate 117 H 109 H 116 H Respiratory 30 H 16 26 H Rate Blood Pressure 93/69 L O2 Sat by Pulse 98 95 98 Oximetry 03/29/18 03/29/18 03/29/18 20:20 20:30 20:40 Temperature Pulse Rate 111 H 109 H 109 H Respiratory 26 H 22 19 Rate Blood Pressure O2 Sat by Pulse 98 98 98 Oximetry 03/29/18 03/29/18 03/29/18 20:50 20:54 21:00 Temperature Pulse Rate 112 H 114 H 110 H Respiratory 19 Rate Blood Pressure 111/65 O2 Sat by Pulse 99 98 Oximetry 03/29/18 03/29/18 03/29/18 21:10 21:20 21:30 Temperature Pulse Rate 109 H 105 H 111 H Respiratory 30 H 17 15 Rate Blood Pressure O2 Sat by Pulse 97 98 98 Oximetry 03/29/18 03/29/18 03/29/18 21:40 21:50 22:00 Temperature Pulse Rate 110 H 108 H 105 H Respiratory 23 14 27 H Rate Blood Pressure O2 Sat by Pulse 98 98 93 L Oximetry 03/29/18 03/29/18 03/29/18 22:10 22:20 22:30 Temperature Pulse Rate 110 H 111 H 105 H Respiratory 30 H 65 H 24 Rate Blood Pressure O2 Sat by Pulse 98 98 96 Oximetry 03/29/18 03/29/18 03/29/18 22:40 22:50 23:00 Temperature Pulse Rate 103 H 104 H 132 H Respiratory 23 21 33 H Rate Blood Pressure O2 Sat by Pulse 97 98 98 Oximetry 03/29/18 03/29/18 03/29/18 23:19 23:20 23:30 Temperature Pulse Rate 131 H 144 H 167 H Respiratory 75 H 49 H 41 H Rate Blood Pressure 159/110 H O2 Sat by Pulse 99 Oximetry 03/29/18 03/29/18 03/29/18 23:40 23:46 23:50 Temperature Pulse Rate 144 H 141 H 137 H Respiratory 33 H 37 H Rate Blood Pressure 120/72 O2 Sat by Pulse 98 97 100 Oximetry 03/30/18 03/30/18 03/30/18 00:00 00:10 00:20 Temperature 97.7 F Pulse Rate 132 H 121 H 124 H Respiratory 29 H 25 H Rate Blood Pressure 111/64 O2 Sat by Pulse 99 100 100 Oximetry 03/30/18 03/30/18 03/30/18 00:30 00:40 00:50 Temperature Pulse Rate 123 H 121 H 123 H Respiratory 29 H 20 26 H Rate Blood Pressure O2 Sat by Pulse 96 95 96 Oximetry 03/30/18 03/30/18 03/30/18 01:00 01:03 01:10 Temperature 100.4 F H Pulse Rate 121 H 122 H Respiratory 29 H 23 Rate Blood Pressure O2 Sat by Pulse 97 96 Oximetry 03/30/18 03/30/18 03/30/18 01:33 01:36 01:40 Temperature Pulse Rate 124 H 124 H 121 H Respiratory 32 H 28 H Rate Blood Pressure 102/64 O2 Sat by Pulse 97 97 98 Oximetry 03/30/18 03/30/18 03/30/18 01:50 02:00 02:10 Temperature Pulse Rate 120 H 116 H 121 H Respiratory 26 H 24 28 H Rate Blood Pressure O2 Sat by Pulse 97 97 97 Oximetry 03/30/18 03/30/18 03/30/18 02:20 02:30 02:40 Temperature Pulse Rate 114 H 118 H 112 H Respiratory 20 26 H 23 Rate Blood Pressure O2 Sat by Pulse 96 97 98 Oximetry 03/30/18 03/30/18 03/30/18 02:50 03:00 03:10 Temperature Pulse Rate 111 H 112 H 106 H Respiratory 23 22 21 Rate Blood Pressure O2 Sat by Pulse 97 97 98 Oximetry 03/30/18 03/30/18 03/30/18 03:20 03:30 03:40 Temperature Pulse Rate 110 H 110 H 107 H Respiratory 23 23 23 Rate Blood Pressure O2 Sat by Pulse 97 98 97 Oximetry 03/30/18 03/30/18 03/30/18 03:50 04:00 04:03 Temperature 98 F Pulse Rate 106 H 106 H 108 H Respiratory 23 24 Rate Blood Pressure 93/67 L O2 Sat by Pulse 98 98 98 Oximetry 03/30/18 03/30/18 03/30/18 04:10 04:20 04:30 Temperature Pulse Rate 109 H 109 H 104 H Respiratory 27 H 27 H 23 Rate Blood Pressure O2 Sat by Pulse 98 98 98 Oximetry 03/30/18 03/30/18 03/30/18 04:40 04:46 04:50 Temperature Pulse Rate 104 H 109 H 112 H Respiratory 40 H 46 H Rate Blood Pressure O2 Sat by Pulse 97 99 Oximetry 03/30/18 03/30/18 03/30/18 05:00 05:10 05:20 Temperature Pulse Rate 106 H 106 H 109 H Respiratory 25 H 22 28 H Rate Blood Pressure O2 Sat by Pulse 98 98 97 Oximetry 03/30/18 03/30/18 03/30/18 05:30 05:40 05:50 Temperature Pulse Rate 102 H 102 H 108 H Respiratory 21 18 Rate Blood Pressure O2 Sat by Pulse 96 97 98 Oximetry 03/30/18 03/30/18 03/30/18 06:00 06:10 06:20 Temperature Pulse Rate 105 H 110 H 102 H Respiratory 23 30 H 22 Rate Blood Pressure 108/76 O2 Sat by Pulse 98 97 97 Oximetry 03/30/18 03/30/18 03/30/18 06:30 06:40 06:50 Temperature Pulse Rate 104 H 97 H 96 H Respiratory 33 H 20 18 Rate Blood Pressure O2 Sat by Pulse 99 98 98 Oximetry 03/30/18 03/30/18 03/30/18 07:00 07:01 07:16 Temperature Pulse Rate 103 H 107 H 107 H Respiratory 25 H 22 Rate Blood Pressure 118/80 O2 Sat by Pulse 92 L 99 97 Oximetry 03/30/18 03/30/18 03/30/18 07:20 07:30 07:40 Temperature Pulse Rate 104 H 107 H 103 H Respiratory 23 21 19 Rate Blood Pressure O2 Sat by Pulse 98 98 99 Oximetry 1203/30/18 03/30/18 07:50 08:00 08:10 Temperature Pulse Rate 95 H 103 H 102 H Respiratory 20 32 H Rate Blood Pressure O2 Sat by Pulse 97 98 97 Oximetry 03/30/18 03/30/18 03/30/18 08:20 08:30 08:40 Temperature Pulse Rate 102 H 109 H 109 H Respiratory 20 22 28 H Rate Blood Pressure O2 Sat by Pulse 98 Oximetry 03/30/18 03/30/18 03/30/18 08:50 09:00 09:10 Temperature Pulse Rate 104 H 104 H 104 H Respiratory 23 26 H 24 Rate Blood Pressure 143/82 O2 Sat by Pulse 97 97 98 Oximetry 03/30/18 03/30/18 03/30/18 09:20 09:30 09:40 Temperature Pulse Rate 107 H 106 H 107 H Respiratory 23 25 H 22 Rate Blood Pressure O2 Sat by Pulse 98 97 97 Oximetry 03/30/18 03/30/18 03/30/18 09:50 09:59 10:00 Temperature Pulse Rate 121 H 143 H 139 H Respiratory 22 33 H 40 H Rate Blood Pressure O2 Sat by Pulse 99 95 Oximetry 03/30/18 03/30/18 03/30/18 10:10 10:20 10:30 Temperature Pulse Rate 143 H 148 H 144 H Respiratory 33 H 40 H Rate Blood Pressure O2 Sat by Pulse 94 L 98 99 Oximetry 03/30/18 03/30/18 03/30/18 10:33 10:40 10:50 Temperature Pulse Rate 139 H 137 H 138 H Respiratory 20 19 Rate Blood Pressure O2 Sat by Pulse 100 100 Oximetry 03/30/18 03/30/18 03/30/18 11:00 11:10 11:20 Temperature Pulse Rate 139 H 136 H 134 H Respiratory 22 23 26 H Rate Blood Pressure O2 Sat by Pulse 98 98 98 Oximetry 03/30/18 03/30/18 03/30/18 11:30 11:40 11:50 Temperature Pulse Rate 130 H 127 H 126 H Respiratory 33 H 28 H Rate Blood Pressure O2 Sat by Pulse 98 99 98 Oximetry 03/30/18 03/30/18 03/30/18 12:00 12:02 12:10 Temperature Pulse Rate 123 H 139 H 128 H Respiratory 27 H 26 H Rate Blood Pressure O2 Sat by Pulse 97 99 Oximetry 03/30/18 03/30/1818 12:20 12:30 12:33 Temperature Pulse Rate 126 H 124 H 126 H Respiratory 24 31 H 39 H Rate Blood Pressure 132/72 O2 Sat by Pulse 98 98 99 Oximetry 03/30/18 03/30/18 03/30/18 12:40 12:50 13:00 Temperature Pulse Rate 120 H 119 H 119 H Respiratory 28 H 26 H 28 H Rate Blood Pressure 122/76 O2 Sat by Pulse 98 98 98 Oximetry 03/30/18 03/30/18 03/30/18 13:10 13:14 13:20 Temperature Pulse Rate 124 H 120 H 121 H Respiratory 22 Rate Blood Pressure O2 Sat by Pulse 99 99 Oximetry 03/30/18 03/30/18 13:30 13:40 Temperature Pulse Rate 121 H 120 H Respiratory 48 H 40 H Rate Blood Pressure O2 Sat by Pulse 98 97 Oximetry
[2018-03-30] MEDS: Morphine 2 mg/ml ISec IVP PRN ×2 (16:00→21:27)
--- NOTE | 2018-03-30 18:43 | PN ---
DATE: 03/30/2018 SUBJECTIVE: The patient is in bed in no acute distress, nontoxic. The patient was seen early this morning in the ICU, comfortable, awake, alert, and responsive. PHYSICAL EXAMINATION: VITAL SIGNS: Temperature of 98, T-max was 100.4 today. Yesterday, the patient had a temperature of 104.6. Heart rate is down to 120. Respiratory rate is 22. Blood pressure is 120/70. HEENT: Unremarkable. NECK: Supple. LUNGS: Decreased breath sounds. HEART: Normal S1, S2. ABDOMEN: Soft, nontender. LABORATORY EXAMINATION: White count of 22,700, hemoglobin of 9, and 88% granulocytosis. Creatinine is 1.7. Urinalysis as noted. Serology is reviewed. Microbiology reveals Gram-negative otto in the blood and Gram-negative otto in the urine. Review of orders reveals that the patient is on meropenem. ASSESSMENT AND PLAN: This is a 53-year-old male who was seen yesterday in the emergency room, who was admitted with severe sepsis with Gram-negative otto in the blood, Gram-negative otto in the urine with a history of kidney stones. Most likely, on CAT scan again, the patient does have an obstructive calculus proximal left ureter, left-sided hydronephrosis, periureteric and perinephric infiltration, appears perinephric fluid, probable left-sided pyelonephritis. On meropenem. Awaiting for identification of the Gram-negative otto in the blood and the urine and Urology and Invasive Radiology input regarding the hydronephrosis and possible nephrostomy tube. We will follow closely with you. Edgard Esposito MD
[2018-03-30] MEDS ORDERED: Metoprolol 1 mg/ml Inj IVP STA (19:51)
[2018-03-31] MEDS: Sodium Chloride 0.9% 1,000 ML IV SCH ×2 (01:46→15:50)
[2018-03-31] MEDS: MEROPENEM 500 MG in NS 500 MG/50 ML BAG IVPB SCH ×2 (05:24→15:47)
[2018-03-31 06:50] LABS: HEMOGLOBIN 10.2 g/dL (14.0-18.0); MEAN CELL VOLUME 82.8 fl (80.0-105.0); MEAN CORPUSCULAR HEMOGLOBIN 28.3 pg (25.0-35.0); MEAN CORPUSCULAR HGB CONC 34.2 g/dl (31.0-37.0); MEAN PLATELET VOLUME 9.6 fl (7.0-11.0); RBC 3.6 10^6/uL (3.5-6.1); RED CELL DISTRIBUTION WIDTH 14.4 % (11.5-14.5); WHITE BLOOD COUNT 21.2 10^3/uL (4.5-11.0)
[2018-03-31 07:08] LABS: ALB/GLOB RATIO 0.8 (1.1-1.8); ALBUMIN 3.1 g/dL (3.0-4.8); CALCIUM 7.5 mg/dL (8.4-10.5)
[2018-03-31] MEDS: Insulin Lispro (humaLOG) LOW Coverage SC SCH ×4 (08:13→22:56)
[2018-03-31] MEDS: Nystatin 100,000 Units/gm Topical Pow(15 gm) TOP SCH ×2 (09:00→09:20)
--- NOTE | 2018-03-31 09:43 | CON ---
DATE: 03/29/2018 The patient is seen earlier today in the emergency room. CHIEF COMPLAINT: Fevers and chills of 1-day duration. HISTORY OF PRESENT ILLNESS: This is a 53-year-old male with obesity with a BMI of 35, history of kidney disease, hypertension, diabetes, kidney stones, history of appendectomy, pain and flank pain on the left side. He has dysuria and frequency, fevers and chills. PAST MEDICAL HISTORY: Significant for kidney stones; obesity, BMI of 35; diabetes; hypertension. PAST SURGICAL HISTORY: Significant for appendectomy. ALLERGIES: THE PATIENT HAS NO KNOWN ALLERGIES. MEDICATIONS AT HOME: Reviewed. Include spironolactone, metoprolol, metformin. 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 He is from [place]. He has not been there he states for several years. Last time he was in [place]. REVIEW OF SYSTEMS: A 14-point review of systems performed. No pulmonary symptoms. No cough, shortness of breath, or chest pain. No headaches or blurred vision. No neck pain. There are urinary symptoms. PHYSICAL EXAMINATION: GENERAL: The patient is in bed, answering questions appropriately. VITAL SIGNS: Temperature of 104.6, heart rate of 122, blood pressure is 84/65, respiratory rate 20. HEENT: Unremarkable. NECK: Supple. LUNGS: Decreased breath sounds. HEART: Normal S1, S2. ABDOMEN: Soft, nontender. No organomegaly. No rebound, no guarding, no masses. There is no CVA tenderness. LABORATORY EXAMINATION: Reveals a white count of 11,300, hemoglobin 12, 88% granulocytosis, platelets of 384. Coagulation is reviewed. Blood gases are noted and reviewed. BUN 22, creatinine of 2.0, glucose 441, alkaline phosphatase is 167, bicarb is 13 and anion gap of 25 with a lactate of 10. Chemistries are noted. Urinalysis reveals 2-5 wbc's, too many rbc's, many bacteria. Influenza is negative. Microbiology reveals gram-negative otto in the blood. The patient had a CAT scan of the abdomen and pelvis, result is pending. Chest x-ray is negative. ASSESSMENT: This is a 53-year-old male with hypertension, diabetes, kidney disease, obesity, BMI of 35 with severe sepsis with gram-negative otto bacteremia secondary to urine, must rule out obstruction with a kidney stone. I recommend urology consultation. We will treat him with meropenem secondary to gram-negative rods in blood and check on the urine cultures. We will order an HIV. We will check on CAT scan of the abdomen and pelvis and order further recommendations. Case discussed with Dr. Vieyra in the emergency room. Edgard Esposito MD
--- NOTE | 2018-03-31 10:10 | CP.PCM.PN ---
Subjective - Date & Time of Evaluation Date of Evaluation: 03/31/18 Time of Evaluation: 08:10 - Subjective Subjective: PGY6 GI Fellow Progress Note Patient seen and examined bedside this morning. The patient states that he is feeling better today following urologic intervention over the weekend with left ureteral stent placement. Denies fever, chills, abdominal pain, nausea, vomiting. 12 system ROS performed and negative except where stated Objective - Vital Signs/Intake and Output Vital Signs (last 24 hours): Temp Pulse Resp BP Pulse Ox 98 F 109 H 22 121/68 96 03/31/18 04:00 03/31/18 07:30 03/31/18 07:30 03/31/18 01:54 03/31/18 03:40 Intake and Output: 03/31/18 03/31/18 06:59 18:59 Intake Total 1580 Output Total 2200 Balance -620 - Medications Medications: Current Medications Acetaminophen (Tylenol 325mg Tab) 975 mg PO ONCE PRN PRN Reason: Fever >100.4 F Last Admin: 03/29/18 10:52 Dose: 975 mg Albuterol/Ipratropium (Duoneb 3 Mg/0.5 Mg (3 Ml) Ud) 3 ml IH Q4H PRN PRN Reason: Shortness of Breath Last Admin: 03/30/18 10:35 Dose: 3 ml Heparin Sodium (Porcine) (Heparin) 5,000 units SC Q12 JÚNIOR; Protocol Last Admin: 03/31/18 09:16 Dose: 5,000 units Sodium Chloride (Sodium Chloride 0.9%) 1,000 mls @ 80 mls/hr IV .[id number] JÚNIOR Last Admin: 03/31/18 01:46 Dose: 80 mls/hr Meropenem/Sodium Chloride (Merrem Iv 500 Mg/Ns 50 Ml) 500 mg in 50 mls @ 100 ml s/hr IVPB Q8 JÚNIOR; Protocol Stop: 04/08/18 06:01 Last Admin: 03/31/18 05:24 Dose: 100 mls/hr Acetaminophen (Ofirmev) 1,000 mg in 100 mls @ 400 mls/hr IVPB Q6H PRN PRN Reason: Temperature Stop: 04/01/18 17:06 Last Admin: 03/30/18 22:40 Dose: 400 mls/hr Insulin Human Lispro (Humalog Low) 0 units SC ACHS [facility]; Protocol Last Admin: 03/31/18 08:13 Dose: 2 units Morphine Sulfate (Morphine) 2 mg IVP Q6H PRN PRN Reason: Pain, moderate (4-7) Last Admin: 03/30/18 21:27 Dose: 2 mg Nystatin (Nystop Topical Powder) 1 gm TOP DAILY [facility] Last Admin: 03/31/18 09:20 Dose: 1 applic Pantoprazole Sodium (Protonix Inj) 40 mg IVP DAILY [facility] Last Admin: 03/31/18 09:16 Dose: 40 mg - Labs Labs: 03/31/18 06:10 03/31/18 06:10 PT 15.1 SECONDS (9.4-12.5) H 03/29/18 10:00 INR 1.31 03/29/18 10:00 APTT 22.9 Seconds (25.1-36.5) L 03/29/18 10:00 - Constitutional Appears: Non-toxic, No Acute Distress - Eye Exam Eye Exam: EOMI, PERRL - ENT Exam ENT Exam: Mucous Membranes Moist - Respiratory Exam Respiratory Exam: Clear to Ausculation Bilateral. absent: Rales, Rhonchi, Wheezes - Cardiovascular Exam Cardiovascular Exam: RRR, +S1, +S2 - GI/Abdominal Exam GI & Abdominal Exam: Soft, Normal Bowel Sounds. absent: Distended, Firm, Guarding, Rigid, Tenderness, Organomegaly - Exam Additional comments: fuentes with blood tinged urine noted - Extremities Exam Extremities Exam: Normal Inspection. absent: Pedal Edema - Neurological Exam Neurological Exam: Alert, Awake, Oriented x3 - Psychiatric Exam Psychiatric exam: Normal Affect, Normal Mood - Skin Skin Exam: Dry, Warm Assessment and Plan - Assessment and Plan (Free Text) Assessment: Patient is a 53yo male with PMHx significant for DM, HTN, nephrolithiasis who presented with flank pain, shaking chills, found to have acute pyelonephritis 2/2 obstructing renal calculus. -Acute left pyelonephritis 2/2 obstructing calculus -Bacteremia with E coli 2/2 above -Indirect hyperbilirubinemia Plan: -Abdominal U/S pending -Viral hepatitis panel pending -Indirect hyperbilirubinemia in the setting of stress/acute infection likely due to underlying undiagnosed Gilbert syndrome -Recommend supportive care and monitoring LFTs periodically -Defer management to ICU and urology teams -Thank you for allowing us to participate in the care of this patient. Please reconsult as needed
--- NOTE | 2018-03-31 10:24 | RAD ---
Date of service: 03/30/2018 PROCEDURE: Retrograde pyelogram HISTORY: R/O STONES COMPARISON: TECHNIQUE: 31.7 sec of fluoro time with cumulative dose 18.79 mGy. Fourteen images submitted FINDINGS: Placement of left ureteral stent IMPRESSION: As above
--- NOTE | 2018-03-31 11:01 | US ---
Date of service: 03/31/2018 HISTORY: Abnormal liver tests, abd pain COMPARISON: None. TECHNIQUE: Sonographic evaluation of the abdomen. FINDINGS: LIVER: Measures 21.8 cm. Normal echogenicity of the liver parenchyma. No mass. No intrahepatic bile duct dilatation. GALLBLADDER: Unremarkable. No gallstones. COMMON BILE DUCT: Measures 5.3 mm. No stones. No dilatation. PANCREAS: Unremarkable as visualized. No mass. No ductal dilatation. RIGHT KIDNEY: Measures 13.1 x 6.2 x 6.9cm. Normal echogenicity. No calculus, mass, or hydronephrosis. LEFT KIDNEY: Measures 14.6 x 5.7 x 8.8cm. Normal echogenicity. No calculus, mass, or hydronephrosis. SPLEEN: Normal in size and contour. No mass. 10.2 x 6.1 x 4.7 AORTA: No aneurysmal dilatation. IVC: Unremarkable. OTHER FINDINGS: None. IMPRESSION: Unremarkable abdominal sonogram.
--- NOTE | 2018-03-31 11:59 | CP.CCUPN ---
<Brenden Robertson - Last Filed: 03/31/18 11:56> CCU Subjective - Physician Review Subjective (Free Text): Brenden Robertson, PGY1 ICU Progress Note for Dr. Amos Patient was seen and examined at bedside this morning. Tmax 100.4 overnight at 10:40 pm. BP is stable at 121/68. Patient has been afebrile since then. He denies cp, sob, abdominal pain, n/v/d. No adverse overnight events. A full 12 point ROS was conducted and unremarkable except as stated above. CCU Objective - Vital Signs / Intake & Output Vital Signs (Last 4 hours): Vital Signs Temp Pulse Resp BP Pulse Ox 03/31/18 11:38 97.6 F 03/31/18 11:00 113 H 11 L 96 03/31/18 10:01 115 H 27 H 127/79 91 L 03/31/18 10:00 112 H 30 H 96 03/31/18 09:01 112 H 31 H 135/80 03/31/18 09:00 111 H 29 H 03/31/18 08:21 113 H 28 H 128/85 03/31/18 08:00 98.2 F 111 H 28 H Intake and Output (Last 8hrs): Intake & Output 03/30/18 03/31/18 03/31/18 22:59 06:59 14:59 Intake Total 1580 Output Total 2200 Balance -620 Intake: IV 1580 0.9 ns 480 LR 900 merrem 200 Output: Urine 2200 Urethral (Fuentes) 2200 - Physical Exam Head: Positive for: Atraumatic, Normocephalic Pupils: Positive for: PERRL Extroacular Muscles: Positive for: EOMI Conjunctiva: Positive for: Normal Mouth: Positive for: Moist Mucous Membranes Respiratory/Chest: Positive for: Clear to Auscultation, Good Air Exchange, Tachypneic. Negative for: Wheezes, Rales, Rhonchi, Tender to Palpation Cardiovascular: Positive for: Normal S1, S2, Peripheal Pulses Present. Negative for: Murmurs, Rub, Gallop Abdomen: Positive for: Normal Bowel Sounds. Negative for: Tenderness, Distention, Mass/Organomegaly Genitourinary Male: Positive for: Other (Fuentes is in place) Upper Extremity: Positive for: Normal Inspection, Normal ROM, NORMAL PULSES, Neurovascularly Intact, Capillary Refill < 2s. Negative for: Cyanosis, Edema, Temperature Abnormalties Lower Extremity: Positive for: Normal Inspection, NORMAL PULSES, Neurovascularly Intact, Capillary Refill < 2 s. Negative for: Edema Neurological: Positive for: GCS=15, CN II-XII Intact, Speech Normal, Motor Func Grossly Intact Skin: Positive for: Warm, Normal Color, Diaphoretic. Negative for: Rashes Psychiatric: Positive for: Alert, Oriented x 3, Normal Insight, Normal Concentration - Medications Active Medications: Active Medications Generic Name Dose Route Start Last Admin Trade Name Freq PRN Reason Stop Dose Admin Acetaminophen 975 mg 03/29/18 10:19 03/29/18 10:52 Tylenol 325mg Tab PO 975 mg ONCE PRN Administration Fever >100.4 F Albuterol/Ipratropium 3 ml 03/30/18 10:05 03/30/18 10:35 Duoneb 3 Mg/0.5 Mg (3 Ml) Ud IH 3 ml Q4H PRN Administration Shortness of Breath Heparin Sodium (Porcine) 5,000 units 03/29/18 22:00 03/31/18 09:16 Heparin SC 5,000 units Q12 JÚNIOR Administration Protocol Sodium Chloride 1,000 mls @ 80 mls/hr 03/29/18 14:30 03/31/18 01:46 Sodium Chloride 0.9% IV 80 mls/hr .[id number] JÚNIOR Administration Meropenem/Sodium Chloride 500 mg in 50 mls @ 100 mls/hr 03/30/18 06:00 03/31/18 05:24 Merrem Iv 500 Mg/Ns 50 Ml IVPB 04/08/18 06:01 100 mls/hr Q8 JÚNIOR Administration Protocol Acetaminophen 1,000 mg in 100 mls @ 400 mls/hr 03/30/18 17:05 03/30/18 22:40 Ofirmev IVPB 04/01/18 17:06 400 mls/hr Q6H PRN Administration Temperature Insulin Human Lispro 0 units 03/29/18 22:00 03/31/18 08:13 Humalog Low SC 2 units ACHS JÚNIOR Administration Protocol Morphine Sulfate 2 mg 03/30/18 16:27 03/30/18 21:27 Morphine IVP 2 mg Q6H PRN Administration Pain, moderate (4-7) Nystatin 1 gm 03/31/18 10:00 03/31/18 09:20 Nystop Topical Powder TOP 1 applic DAILY JÚNIOR Administration Pantoprazole Sodium 40 mg 03/30/18 10:00 03/31/18 09:16 Protonix Inj IVP 40 mg DAILY JÚNIOR Administration - Patient Studies Lab Studies: Microbiology Studies 03/29/18 11:00 Urine Culture - Final Urine,Fuentes Escherichia Coli 03/29/18 10:30 Blood Culture - Final Blood Escherichia Coli Gram Stain - Final 03/29/18 10:15 Blood Culture - Final Blood Escherichia Coli Gram Stain - Final 03/29/18 15:00 MRSA Culture (Admit) - Final Naris MRSA NOT DETECTED Lab Studies 03/31/18 03/31/18 03/30/18 Range/Units 06:10 06:10 22:02 WBC 21.2 H (4.5-11.0) 10^3/uL RBC 3.60 (3.5-6.1) 10^6/uL Hgb 10.2 L (14.0-18.0) g/dL Hct 29.8 L (42.0-52.0) % MCV 82.8 (80.0-105.0) fl MCH 28.3 (25.0-35.0) pg MCHC 34.2 (31.0-37.0) g/dl RDW 14.4 (11.5-14.5) % Plt Count 189 (120.0-450.0) 10^3/uL MPV 9.6 (7.0-11.0) fl Sodium 136 (132-148) mmol/L Potassium 4.3 (3.6-5.0) mmol/L Chloride 111 H (98-107) mmol/L Carbon Dioxide 16 L (21-33) mmol/L Anion Gap 14 (10-20) BUN 29 H (7-21) mg/dL Creatinine 1.7 H (0.8-1.5) mg/dl Est GFR ( Amer) 51 Est GFR (Non-Af Amer) 42 POC Glucose (mg/dL) 261 H (65-110) mg/dL Random Glucose 285 H (70-110) mg/dL Calcium 7.5 L (8.4-10.5) mg/dL Phosphorus 3.3 (2.5-4.5) mg/dL Magnesium 1.8 (1.7-2.2) mg/dL Total Bilirubin 1.7 H (0.2-1.3) mg/dL Direct Bilirubin (0.0-0.4) mg/dL AST 30 (17-59) U/L ALT 24 (7-56) U/L Alkaline Phosphatase 119 (38-126) U/L Total Protein 6.8 (5.8-8.3) g/dL Albumin 3.1 (3.0-4.8) g/dL Globulin 3.8 gm/dL Albumin/Globulin Ratio 0.8 L (1.1-1.8) Procalcitonin (0.19-0.49) NG/ML 03/30/18 03/30/18 03/30/18 Range/Units 16:32 12:53 05:00 WBC (4.5-11.0) 10^3/uL RBC (3.5-6.1) 10^6/uL Hgb (14.0-18.0) g/dL Hct (42.0-52.0) % MCV (80.0-105.0) fl MCH (25.0-35.0) pg MCHC (31.0-37.0) g/dl RDW (11.5-14.5) % Plt Count (120.0-450.0) 10^3/uL MPV (7.0-11.0) fl Sodium (132-148) mmol/L Potassium (3.6-5.0) mmol/L Chloride (98-107) mmol/L Carbon Dioxide (21-33) mmol/L Anion Gap (10-20) BUN (7-21) mg/dL Creatinine (0.8-1.5) mg/dl Est GFR ( Amer) Est GFR (Non-Af Amer) POC Glucose (mg/dL) 264 H 251 H (65-110) mg/dL Random Glucose (70-110) mg/dL Calcium (8.4-10.5) mg/dL Phosphorus (2.5-4.5) mg/dL Magnesium (1.7-2.2) mg/dL Total Bilirubin (0.2-1.3) mg/dL Direct Bilirubin 0.4 (0.0-0.4) mg/dL AST (17-59) U/L ALT (7-56) U/L Alkaline Phosphatase (38-126) U/L Total Protein (5.8-8.3) g/dL Albumin (3.0-4.8) g/dL Globulin gm/dL Albumin/Globulin Ratio (1.1-1.8) Procalcitonin (0.19-0.49) NG/ML 03/29/18 Range/Units 16:40 WBC (4.5-11.0) 10^3/uL RBC (3.5-6.1) 10^6/uL Hgb (14.0-18.0) g/dL Hct (42.0-52.0) % MCV (80.0-105.0) fl MCH (25.0-35.0) pg MCHC (31.0-37.0) g/dl RDW (11.5-14.5) % Plt Count (120.0-450.0) 10^3/uL MPV (7.0-11.0) fl Sodium (132-148) mmol/L Potassium (3.6-5.0) mmol/L Chloride (98-107) mmol/L Carbon Dioxide (21-33) mmol/L Anion Gap (10-20) BUN (7-21) mg/dL Creatinine (0.8-1.5) mg/dl Est GFR ( Amer) Est GFR (Non-Af Amer) POC Glucose (mg/dL) (65-110) mg/dL Random Glucose (70-110) mg/dL Calcium (8.4-10.5) mg/dL Phosphorus (2.5-4.5) mg/dL Magnesium (1.7-2.2) mg/dL Total Bilirubin (0.2-1.3) mg/dL Direct Bilirubin (0.0-0.4) mg/dL AST (17-59) U/L ALT (7-56) U/L Alkaline Phosphatase (38-126) U/L Total Protein (5.8-8.3) g/dL Albumin (3.0-4.8) g/dL Globulin gm/dL Albumin/Globulin Ratio (1.1-1.8) Procalcitonin 77.67 H (0.19-0.49) NG/ML Laboratory Results - last 24 hr 03/29/18 03/30/18 03/30/18 16:40 05:00 12:53 WBC RBC Hgb Hct MCV MCH MCHC RDW Plt Count MPV Sodium Potassium Chloride Carbon Dioxide Anion Gap BUN Creatinine Est GFR ( Amer) Est GFR (Non-Af Amer) POC Glucose (mg/dL) 251 H Random Glucose Calcium Phosphorus Magnesium Total Bilirubin Direct Bilirubin 0.4 AST ALT Alkaline Phosphatase Total Protein Albumin Globulin Albumin/Globulin Ratio Procalcitonin 77.67 H 03/30/18 03/30/18 03/31/18 16:32 22:02 06:10 WBC 21.2 H RBC 3.60 Hgb 10.2 L Hct 29.8 L MCV 82.8 MCH 28.3 MCHC 34.2 RDW 14.4 Plt Count 189 MPV 9.6 Sodium Potassium Chloride Carbon Dioxide Anion Gap BUN Creatinine Est GFR ( Amer) Est GFR (Non-Af Amer) POC Glucose (mg/dL) 264 H 261 H Random Glucose Calcium Phosphorus Magnesium Total Bilirubin Direct Bilirubin AST ALT Alkaline Phosphatase Total Protein Albumin Globulin Albumin/Globulin Ratio Procalcitonin 03/31/18 06:10 WBC RBC Hgb Hct MCV MCH MCHC RDW Plt Count MPV Sodium 136 Potassium 4.3 Chloride 111 H Carbon Dioxide 16 L Anion Gap 14 BUN 29 H Creatinine 1.7 H Est GFR ( Amer) 51 Est GFR (Non-Af Amer) 42 POC Glucose (mg/dL) Random Glucose 285 H Calcium 7.5 L Phosphorus 3.3 Magnesium 1.8 Total Bilirubin 1.7 H Direct Bilirubin AST 30 ALT 24 Alkaline Phosphatase 119 Total Protein 6.8 Albumin 3.1 Globulin 3.8 Albumin/Globulin Ratio 0.8 L Procalcitonin Fingerstick Blood Sugar Results: 3 Review of Systems - Review of Systems All systems: reviewed and no additional remarkable complaints except (as per HPI) Critical Care Progress Note - Extremities/Vascular Does the Patient have a Central Venous Catheter?: No Does the Patient need a Central Venous Catheter?: No Does the Patient have a Fuentes Catheter?: Yes Does the Patient need a Fuentes Catheter?: Yes Catheter Insertion Criteria: Patient has acute urinary retention or bladder outlet obstruction - Prophylaxis GI Prophylaxis GI: PPI - Prophylaxis DVT Prophylaxis DVT: Heparin SQ - Nutrition Nutrition: Nutrition Category Date Time Status Heart Healthy Diet [DIET] Diets 03/30/18 Dinner Active Assessment/Plan - Assessment and Plan (Free Text) Assessment: Patient is a 53 y/o M with PMHx of HTN and DM2 who presents to the ED via EMS with complaints of mild abdominal pain with cough and shortness of breath. In the ED, code sepsis was called. Patient was noted to be hypotensive and ICU was consulted for evaluation of sepsis. Patient had CT Abdomen/Pelvis which indicated 8.3 mm obstructing stone in the left ureter with mild L-sided hydronephrosis and a 7 mm non-obstructing stone in the right kidney. Urology was consulted for evaluation. Plan: Neuro: - AAOx3 - Maintain normothermia Cardio: - Echo ordered to r/o endocarditis/vegetations given blood cx findings - Normotensive - Maintain MAP > 65 - Initially hypotensive in ED; given x4 L IVF. BP responded to fluids. - Hx of HTN Pulm: - Patient is saturating well - Maintain SaO2 > 92% GI: - GI ppx - HHD - Tbili initially elevated. GI consulted for eval. They ordered abdominal Ultrasound. Otherwise, direct bili is normal and no further recs. - No transaminitis Renal - c/w IVF - RAMON; BUN/Cr is 29/1.7 - Likely secondary to patient's obstructing stone and urosepsis : - Urosepsis in the setting of Obstructing L-Ureter Nephrolithiasis - s/p retrograde pyelogram with placement of left ureteral stent (03/30) - CT Abdomen/Pelvis (03/29): 8.3 mm obstructing stone in the left ureter with mild L-sided hydronephrosis and a 7 mm non-obstructing stone in the right kidney - Urology was consulted. Recs appreciated. - Patient's net urine output was -620 mL Heme: - Hgb is 10 - stable - DVT ppx Endo: - Maintain euglycemia; target range 140-180 blood glucose as per NICE-SUGAR trial - ISS (low) - Accuchecks ACHS - Hx of DM ID: - Urosepsis with Obstructing Nephrolithiasis - s/p L-ureteral stent placement - Tmax 100.4 overnight. Blood cultures were repeated. Now afebrile. - c/w merropenem (Day #3); discuss with ID about about possible downgrading antibiotics - c/w maintenance fluids - Intial Blood cx grew gram negative rods x2 (prelim) - Urine Cx grew gram negative rods - leukocytosis - UA: large blood, +nitrate, +rbc - ID on consult. Recs appreciated Dispo: Patient is s/p retrograde pyelogram with placement of left ureteral stent on 03/30. Patient's vital signs are stable. No acute distress or acute issues at this time. Labs and imaging were reviewed. Patient may be transferred to med- surg. Case was discussed and reviewed with Attending Physician, Dr. Amos <Brandon Amos - Last Filed: 03/31/18 12:22> CCU Objective - Vital Signs / Intake & Output Vital Signs (Last 4 hours): Vital Signs Temp Pulse Resp BP Pulse Ox 03/31/18 11:38 97.6 F 03/31/18 11:00 113 H 11 L 96 03/31/18 10:01 115 H 27 H 127/79 91 L 03/31/18 10:00 112 H 30 H 96 03/31/18 09:01 112 H 31 H 135/80 03/31/18 09:00 111 H 29 H 03/31/18 08:21 113 H 28 H 128/85 Intake and Output (Last 8hrs): Intake & Output 03/30/18 03/31/18 03/31/18 22:59 06:59 14:59 Intake Total 1580 Output Total 2200 Balance -620 Intake: IV 1580 0.9 ns 480 LR 900 merrem 200 Output: Urine 2200 Urethral (Fuentes) 2200 - Medications Active Medications: Active Medications Generic Name Dose Route Start Last Admin Trade Name Freq PRN Reason Stop Dose Admin Acetaminophen 975 mg 03/29/18 10:19 03/29/18 10:52 Tylenol 325mg Tab PO 975 mg ONCE PRN Administration Fever >100.4 F Albuterol/Ipratropium 3 ml 03/30/18 10:05 03/30/18 10:35 Duoneb 3 Mg/0.5 Mg (3 Ml) Ud IH 3 ml Q4H PRN Administration Shortness of Breath Heparin Sodium (Porcine) 5,000 units 03/29/18 22:00 03/31/18 09:16 Heparin SC 5,000 units Q12 JÚNIOR Administration Protocol Sodium Chloride 1,000 mls @ 80 mls/hr 03/29/18 14:30 12/03/18 01:46 Sodium Chloride 0.9% IV 80 mls/hr .[id number] JÚNIOR Administration Meropenem/Sodium Chloride 500 mg in 50 mls @ 100 mls/hr 03/30/18 06:00 03/31/18 05:24 Merrem Iv 500 Mg/Ns 50 Ml IVPB 04/08/18 06:01 100 mls/hr Q8 JÚNIOR Administration Protocol Acetaminophen 1,000 mg in 100 mls @ 400 mls/hr 03/30/18 17:05 03/30/18 22:40 Ofirmev IVPB 04/01/18 17:06 400 mls/hr Q6H PRN Administration Temperature Insulin Human Lispro 0 units 03/29/18 22:00 03/31/18 12:01 Humalog Low SC 3 units ACHS JÚNIOR Administration Protocol Morphine Sulfate 2 mg 03/30/18 16:27 03/30/18 21:27 Morphine IVP 2 mg Q6H PRN Administration Pain, moderate (4-7) Nystatin 1 gm 03/31/18 10:00 03/31/18 09:20 Nystop Topical Powder TOP 1 applic DAILY JÚNIOR Administration Pantoprazole Sodium 40 mg 03/30/18 10:00 03/31/18 09:16 Protonix Inj IVP 40 mg DAILY JÚNIOR Administration - Patient Studies Lab Studies: Microbiology Studies 03/29/18 11:00 Urine Culture - Final Urine,Fuentes Escherichia Coli 03/29/18 10:30 Blood Culture - Final Blood Escherichia Coli Gram Stain - Final 03/29/18 10:15 Blood Culture - Final Blood Escherichia Coli Gram Stain - Final 03/29/18 15:00 MRSA Culture (Admit) - Final Naris MRSA NOT DETECTED Lab Studies 03/31/18 03/31/18 03/31/18 Range/Units 08:02 06:10 06:10 WBC 21.2 H (4.5-11.0) 10^3/uL RBC 3.60 (3.5-6.1) 10^6/uL Hgb 10.2 L (14.0-18.0) g/dL Hct 29.8 L (42.0-52.0) % MCV 82.8 (80.0-105.0) fl MCH 28.3 (25.0-35.0) pg MCHC 34.2 (31.0-37.0) g/dl RDW 14.4 (11.5-14.5) % Plt Count 189 (120.0-450.0) 10^3/uL MPV 9.6 (7.0-11.0) fl Sodium 136 (132-148) mmol/L Potassium 4.3 (3.6-5.0) mmol/L Chloride 111 H (98-107) mmol/L Carbon Dioxide 16 L (21-33) mmol/L Anion Gap 14 (10-20) BUN 29 H (7-21) mg/dL Creatinine 1.7 H (0.8-1.5) mg/dl Est GFR ( Amer) 51 Est GFR (Non-Af Amer) 42 POC Glucose (mg/dL) (65-110) mg/dL Random Glucose 285 H (70-110) mg/dL Calcium 7.5 L (8.4-10.5) mg/dL Phosphorus 3.3 (2.5-4.5) mg/dL Magnesium 1.8 (1.7-2.2) mg/dL Total Bilirubin 1.7 H (0.2-1.3) mg/dL Direct Bilirubin (0.0-0.4) mg/dL AST 30 (17-59) U/L ALT 24 (7-56) U/L Alkaline Phosphatase 119 (38-126) U/L Total Protein 6.8 (5.8-8.3) g/dL Albumin 3.1 (3.0-4.8) g/dL Globulin 3.8 gm/dL Albumin/Globulin Ratio 0.8 L (1.1-1.8) Procalcitonin (0.19-0.49) NG/ML Hepatitis A IgM Ab Negative (NEGATIVE) Hep Bs Antigen Negative (NEGATIVE) Hep B Core IgM Ab Negative (NEGATIVE) 03/30/18 03/30/18 03/30/18 Range/Units 22:02 16:32 12:53 WBC (4.5-11.0) 10^3/uL RBC (3.5-6.1) 10^6/uL Hgb (14.0-18.0) g/dL Hct (42.0-52.0) % MCV (80.0-105.0) fl MCH (25.0-35.0) pg MCHC (31.0-37.0) g/dl RDW (11.5-14.5) % Plt Count (120.0-450.0) 10^3/uL MPV (7.0-11.0) fl Sodium (132-148) mmol/L Potassium (3.6-5.0) mmol/L Chloride (98-107) mmol/L Carbon Dioxide (21-33) mmol/L Anion Gap (10-20) BUN (7-21) mg/dL Creatinine (0.8-1.5) mg/dl Est GFR ( Amer) Est GFR (Non-Af Amer) POC Glucose (mg/dL) 261 H 264 H 251 H (65-110) mg/dL Random Glucose (70-110) mg/dL Calcium (8.4-10.5) mg/dL Phosphorus (2.5-4.5) mg/dL Magnesium (1.7-2.2) mg/dL Total Bilirubin (0.2-1.3) mg/dL Direct Bilirubin (0.0-0.4) mg/dL AST (17-59) U/L ALT (7-56) U/L Alkaline Phosphatase (38-126) U/L Total Protein (5.8-8.3) g/dL Albumin (3.0-4.8) g/dL Globulin gm/dL Albumin/Globulin Ratio (1.1-1.8) Procalcitonin (0.19-0.49) NG/ML Hepatitis A IgM Ab (NEGATIVE) Hep Bs Antigen (NEGATIVE) Hep B Core IgM Ab (NEGATIVE) 03/30/18 03/29/18 Range/Units 05:00 16:40 WBC (4.5-11.0) 10^3/uL RBC (3.5-6.1) 10^6/uL Hgb (14.0-18.0) g/dL Hct (42.0-52.0) % MCV (80.0-105.0) fl MCH (25.0-35.0) pg MCHC (31.0-37.0) g/dl RDW (11.5-14.5) % Plt Count (120.0-450.0) 10^3/uL MPV (7.0-11.0) fl Sodium (132-148) mmol/L Potassium (3.6-5.0) mmol/L Chloride (98-107) mmol/L Carbon Dioxide (21-33) mmol/L Anion Gap (10-20) BUN (7-21) mg/dL Creatinine (0.8-1.5) mg/dl Est GFR ( Amer) Est GFR (Non-Af Amer) POC Glucose (mg/dL) (65-110) mg/dL Random Glucose (70-110) mg/dL Calcium (8.4-10.5) mg/dL Phosphorus (2.5-4.5) mg/dL Magnesium (1.7-2.2) mg/dL Total Bilirubin (0.2-1.3) mg/dL Direct Bilirubin 0.4 (0.0-0.4) mg/dL AST (17-59) U/L ALT (7-56) U/L Alkaline Phosphatase (38-126) U/L Total Protein (5.8-8.3) g/dL Albumin (3.0-4.8) g/dL Globulin gm/dL Albumin/Globulin Ratio (1.1-1.8) Procalcitonin 77.67 H (0.19-0.49) NG/ML Hepatitis A IgM Ab (NEGATIVE) Hep Bs Antigen (NEGATIVE) Hep B Core IgM Ab (NEGATIVE) Laboratory Results - last 24 hr 03/29/18 03/30/18 03/30/18 16:40 05:00 12:53 WBC RBC Hgb Hct MCV MCH MCHC RDW Plt Count MPV Sodium Potassium Chloride Carbon Dioxide Anion Gap BUN Creatinine Est GFR ( Amer) Est GFR (Non-Af Amer) POC Glucose (mg/dL) 251 H Random Glucose Calcium Phosphorus Magnesium Total Bilirubin Direct Bilirubin 0.4 AST ALT Alkaline Phosphatase Total Protein Albumin Globulin Albumin/Globulin Ratio Procalcitonin 77.67 H Hepatitis A IgM Ab Hep Bs Antigen Hep B Core IgM Ab 03/30/18 03/30/18 03/31/18 16:32 22:02 06:10 WBC 21.2 H RBC 3.60 Hgb 10.2 L Hct 29.8 L MCV 82.8 MCH 28.3 MCHC 34.2 RDW 14.4 Plt Count 189 MPV 9.6 Sodium Potassium Chloride Carbon Dioxide Anion Gap BUN Creatinine Est GFR ( Amer) Est GFR (Non-Af Amer) POC Glucose (mg/dL) 264 H 261 H Random Glucose Calcium Phosphorus Magnesium Total Bilirubin Direct Bilirubin AST ALT Alkaline Phosphatase Total Protein Albumin Globulin Albumin/Globulin Ratio Procalcitonin Hepatitis A IgM Ab Hep Bs Antigen Hep B Core IgM Ab 03/31/18 03/31/18 06:10 08:02 WBC RBC Hgb Hct MCV MCH MCHC RDW Plt Count MPV Sodium 136 Potassium 4.3 Chloride 111 H Carbon Dioxide 16 L Anion Gap 14 BUN 29 H Creatinine 1.7 H Est GFR ( Amer) 51 Est GFR (Non-Af Amer) 42 POC Glucose (mg/dL) Random Glucose 285 H Calcium 7.5 L Phosphorus 3.3 Magnesium 1.8 Total Bilirubin 1.7 H Direct Bilirubin AST 30 ALT 24 Alkaline Phosphatase 119 Total Protein 6.8 Albumin 3.1 Globulin 3.8 Albumin/Globulin Ratio 0.8 L Procalcitonin Hepatitis A IgM Ab Negative Hep Bs Antigen Negative Hep B Core IgM Ab Negative Critical Care Progress Note - Nutrition Nutrition: Nutrition Category Date Time Status Heart Healthy Diet [DIET] Diets 03/30/18 Dinner Active Assessment/Plan - Assessment and Plan (Free Text) Plan: Patient seen and examined on rounds with resident, agree with note with foll owing additions/exceptions: Patient is 53yo male with PMHX, HTN, DM, presented with severe sepsis, 2/2 UTI, Pyelonephritis, 2/2 obstructing L renal stone, s/p retrograde pyelogram with placement of left ureteral stent (03/30). Currently afebrile, BP stable, comfortable in NAD, tolerated breakfast. Labs, imaging, chart reviewed. GNR in BCx, E coli, sensitivities noted, on appropriate abx UTI Pyelonephritis Renal stones Hydronephrosis DM HTN Recommend: - supp o2 as needed, duonebs PRN - Abx as per ID, downgrade abx - BP control - IVF - Ulytes - FS control - check HgbA1C - DC fuentes - follow up GI - follow urology - GI ppx - DVT ppx - transfer to med surg, stable
[2018-03-31 12:09] LABS: HEPATITIS B SURFACE AG Negative (NEGATIVE)
[2018-03-31 12:15] LABS: HEPATITIS A IGM NEGATIVE (NEGATIVE); HEPATITIS B CORE AB NEGATIVE (NEGATIVE)
[2018-03-31 12:26] LABS: HEPATITIS C ANTIBODY NEGATIVE (NEGATIVE)
[2018-03-31] MEDS: Albuterol-Ipratrop 3 mg / 0.5 (3 ml) UD IH PRN (13:59)
--- NOTE | 2018-03-31 17:26 | CARD ---
APPROVED REPORT Date of service: 03/31/2018 EXAM: Two-dimensional and M-mode echocardiogram with Doppler and color Doppler. INDICATION Infection:Rule out subacute bacterial endocarditis 2D DIMENSIONS Left Atrium (2D)4.4 (1.6-4.0cm)IVSd1.1 (0.7-1.1cm) LVDd5.4 (3.9-5.9cm)PWd1.2 (0.7-1.1cm) LVDs3.8 (2.5-4.0cm)FS (%) 29.3 % LVEF (%)55.5 (>50%) M-Mode DIMENSIONS Aortic Root3.70 (2.2-3.7cm)Aortic Cusp Exc.2.10 (1.5-2.0cm) Aortic Valve AoV Peak Gdivpnxh297.0cm/Danni Peak GR.9mmHg Mitral Valve MV E Uqururjb85.5cm/sMV A Gnofuyjo43.4cm/sE/A ratio1.0 TDI Lateral E' Peak V8.68cm/sMedial E' Peak V10.40cm/sE/Lateral E'9.3 E/Medial E'7.7 Pulmonary Valve PV Peak Ldsrdbrs67.1cm/sPV Peak Grad.2mmHg Tricuspid Valve TR Peak Rrhxkrcx231vh/sRAP [id number] Peak Gr.17mmHg [id number] LEFT VENTRICLE The left ventricle is normal size. There is borderline concentric left ventricular hypertrophy. The left ventricular function is normal.EF-55% There is normal LV segmental wall motion. Transmitral Doppler flow pattern is Grade III-reversible restrictive diastolic dysfunction. No left ventricle thrombus noted on this study. There is no ventricular septal defect visualized. There is no left ventricular aneurysm. There is no mass noted in the left ventricle. RIGHT VENTRICLE The right ventricle is normal size. There is normal right ventricular wall thickness. The right ventricular systolic function is normal. ATRIA The left atrium is borderline dilated. The right atrium size is normal. AORTIC VALVE The aortic valve is thickened but opens well. No aortic regurgitation is present. There is no aortic valvular stenosis. There is no aortic valvular vegetation. MITRAL VALVE The mitral valve is thickened but opens well. Mitral regurgitation is mild. There is no mitral valve stenosis. There is no evidence of mitral valve prolapse. TRICUSPID VALVE The tricuspid valve leaflets are thickened , but open well. There is trace to mild tricuspid regurgitation.RVSP_27 mmof Hg. There is no tricuspid valve stenosis. There is no tricuspid valve prolapse or vegetation. PULMONIC VALVE The pulmonary valve is normal in structure. There is tracetrace pulmonic valvular regurgitation. There is no pulmonic valvular stenosis. GREAT VESSELS The aortic root is normal in size. The ascending aorta is normal in size. The pulmonary artery is normal. The IVC is normal in size and collapses >50% with inspiration. PERICARDIAL EFFUSION There is no pleural effusion. There is no pericardial effusion. <Conclusion> The left ventricle is normal size. There is borderline concentric left ventricular hypertrophy. The left ventricular function is normal.EF-55% Mitral regurgitation is mild. There is trace to mild tricuspid regurgitation.RVSP_27 mmof Hg. The IVC is normal in size and collapses >50% with inspiration. There is no pericardial effusion. No Vegetation or thrombus noted.
--- NOTE | 2018-03-31 20:09 | CP.PCM.PN ---
Subjective - Date & Time of Evaluation Date of Evaluation: 03/31/18 Time of Evaluation: 10:45 - Subjective Subjective: Seen earlier this morning in the ICU, no fevers, no flank pain currently, still feels a little weak but better. Objective - Vital Signs/Intake and Output Vital Signs (last 24 hours): Temp Pulse Resp BP Pulse Ox 98.5 F 119 H 22 118/74 95 03/31/18 14:00 03/31/18 14:00 03/31/18 14:00 03/31/18 14:00 03/31/18 14:00 Intake and Output: 03/31/18 04/01/18 18:59 06:59 Intake Total 720 720 Output Total 1100 900 Balance -380 -180 - Medications Medications: Current Medications Acetaminophen (Tylenol 325mg Tab) 975 mg PO ONCE PRN PRN Reason: Fever >100.4 F Last Admin: 03/29/18 10:52 Dose: 975 mg Albuterol/Ipratropium (Duoneb 3 Mg/0.5 Mg (3 Ml) Ud) 3 ml IH Q4H PRN PRN Reason: Shortness of Breath Last Admin: 03/31/18 13:59 Dose: 3 ml Heparin Sodium (Porcine) (Heparin) 5,000 units SC Q12 JÚNIOR; Protocol Last Admin: 03/31/18 09:16 Dose: 5,000 units Sodium Chloride (Sodium Chloride 0.9%) 1,000 mls @ 80 mls/hr IV .[id number] JÚNIOR Last Admin: 03/31/18 15:50 Dose: 80 mls/hr Meropenem/Sodium Chloride (Merrem Iv 500 Mg/Ns 50 Ml) 500 mg in 50 mls @ 100 mls/hr IVPB Q8 JÚNIOR; Protocol Stop: 04/08/18 06:01 Last Admin: 03/31/18 15:47 Dose: 100 mls/hr Acetaminophen (Ofirmev) 1,000 mg in 100 mls @ 400 mls/hr IVPB Q6H PRN PRN Reason: Temperature Stop: 04/01/18 17:06 Last Admin: 03/30/18 22:40 Dose: 400 mls/hr Insulin Human Lispro (Humalog Low) 0 units SC ACHS JÚNIOR; Protocol Last Admin: 03/31/18 16:55 Dose: 2 units Morphine Sulfate (Morphine) 2 mg IVP Q6H PRN PRN Reason: Pain, moderate (4-7) Last Admin: 03/30/18 21:27 Dose: 2 mg Nystatin (Nystop Topical Powder) 1 gm TOP DAILY [facility] Last Admin: 03/31/18 09:00 Dose: Not Given Pantoprazole Sodium (Protonix Inj) 40 mg IVP DAILY [facility] Last Admin: 03/31/18 09:16 Dose: 40 mg - Labs Labs: 03/31/18 06:10 03/31/18 06:10 PT 15.1 SECONDS (9.4-12.5) H 03/29/18 10:00 INR 1.31 03/29/18 10:00 APTT 22.9 Seconds (25.1-36.5) L 03/29/18 10:00 - Constitutional Appears: Chronically Ill - Head Exam Head Exam: NORMAL INSPECTION - Respiratory Exam Respiratory Exam: Decreased Breath Sounds - Cardiovascular Exam Cardiovascular Exam: +S1, +S2 - GI/Abdominal Exam GI & Abdominal Exam: Soft. absent: Tenderness Assessment and Plan - Assessment and Plan (Free Text) Plan: Assessment Severe sepsis due to E. coli bacteremia from left sided complicated pyelonephritis with nephrolithiasis S/P left ureteral stent placement obesity with BMI 37 history of kidney stones HTN DM S/P appendectomy Plan Will change Merrem to Rocephin to complete 10-14 days of therapy follow up further plans of Urology
[2018-03-31] MEDS: cefTRIAXone 2 GM IN NS 2 GM/100 ML BAG IVPB SCH (21:43)
[2018-04-01] MEDS: Sodium Chloride 0.9% 1,000 ML IV SCH ×2 (05:27→20:32)
[2018-04-01 07:51] LABS: WHITE BLOOD COUNT 13.4 10^3/uL (4.5-11.0)
[2018-04-01 07:52] LABS: HEMOGLOBIN 9.9 g/dL (14.0-18.0); MEAN CELL VOLUME 83.7 fl (80.0-105.0); MEAN CORPUSCULAR HEMOGLOBIN 28.4 pg (25.0-35.0); MEAN CORPUSCULAR HGB CONC 33.9 g/dl (31.0-37.0); MEAN PLATELET VOLUME 9.9 fl (7.0-11.0); RBC 3.49 10^6/uL (3.5-6.1); RED CELL DISTRIBUTION WIDTH 14.5 % (11.5-14.5)
[2018-04-01 08:13] LABS: ALB/GLOB RATIO 0.7 (1.1-1.8); ALBUMIN 2.8 g/dL (3.0-4.8); ALT/SGPT 23 U/L (7-56); AST/SGOT 28 U/L (17-59); BLOOD UREA NITROGEN 30 mg/dL (7-21); CALCIUM 7.4 mg/dL (8.4-10.5); GFR NON-AFRICAN AMERICAN > 60
[2018-04-01] MEDS: Insulin Lispro (humaLOG) LOW Coverage SC SCH ×4 (08:14→22:44)
[2018-04-01] MEDS: cefTRIAXone 2 GM IN NS 2 GM/100 ML BAG IVPB SCH (10:55)
--- NOTE | 2018-04-01 12:21 | PCM.URO ---
Urology Progress Note - Subjective Abdominal Pain: Yes - Objective Lab Results Last 24 Hours: Laboratory Results - last 24 hr 03/30/18 03/31/18 03/31/18 05:00 06:10 07:27 WBC RBC Hgb Hct MCV MCH MCHC RDW Plt Count MPV Sodium Potassium Chloride Carbon Dioxide Anion Gap BUN Creatinine Est GFR ( Amer) Est GFR (Non-Af Amer) POC Glucose (mg/dL) 231 H Random Glucose Calcium Phosphorus Magnesium Total Bilirubin AST ALT Alkaline Phosphatase Total Protein Albumin Globulin Albumin/Globulin Ratio Hepatitis C Antibody Non reactive Hep C Ab Signal/Cutoff 0.07 HIV 1&2 Ag/Ab, 4th Gen Nonreactive 03/31/18 03/31/18 03/31/18 08:02 11:03 16:37 WBC RBC Hgb Hct MCV MCH MCHC RDW Plt Count MPV Sodium Potassium Chloride Carbon Dioxide Anion Gap BUN Creatinine Est GFR ( Amer) Est GFR (Non-Af Amer) POC Glucose (mg/dL) 250 H 207 H Random Glucose Calcium Phosphorus Magnesium Total Bilirubin AST ALT Alkaline Phosphatase Total Protein Albumin Globulin Albumin/Globulin Ratio Hepatitis C Antibody Negative Hep C Ab Signal/Cutoff HIV 1&2 Ag/Ab, 4th Gen 03/31/18 04/01/18 04/01/18 21:41 06:16 07:20 WBC 13.4 H D RBC 3.49 L Hgb 9.9 L Hct 29.2 L MCV 83.7 MCH 28.4 MCHC 33.9 RDW 14.5 Plt Count 194 MPV 9.9 Sodium Potassium Chloride Carbon Dioxide Anion Gap BUN Creatinine Est GFR ( Amer) Est GFR (Non-Af Amer) POC Glucose (mg/dL) 342 H 217 H Random Glucose Calcium Phosphorus Magnesium Total Bilirubin AST ALT Alkaline Phosphatase Total Protein Albumin Globulin Albumin/Globulin Ratio Hepatitis C Antibody Hep C Ab Signal/Cutoff HIV 1&2 Ag/Ab, 4th Gen 04/01/18 04/01/18 07:20 11:16 WBC RBC Hgb Hct MCV MCH MCHC RDW Plt Count MPV Sodium 138 Potassium 3.9 Chloride 110 H Carbon Dioxide 20 L Anion Gap 12 BUN 30 H Creatinine 1.2 Est GFR ( Amer) > 60 Est GFR (Non-Af Amer) > 60 POC Glucose (mg/dL) 311 H Random Glucose 249 H Calcium 7.4 L Phosphorus 2.9 Magnesium 2.0 Total Bilirubin 1.0 AST 28 ALT 23 Alkaline Phosphatase 132 H Total Protein 6.7 Albumin 2.8 L Globulin 3.8 Albumin/Globulin Ratio 0.7 L Hepatitis C Antibody Hep C Ab Signal/Cutoff HIV 1&2 Ag/Ab, 4th Gen Intake & Output: Intake & Output 03/31/18 04/01/18 04/01/18 18:59 06:59 18:59 Intake Total 720 1220 Output Total 1100 2100 Balance -380 -880 Intake: IV 400 0.9 ns 400 Oral 320 1220 Output: Urine 1100 2100 Urethral (Campbell) 1100 2100 Other: # Bowel Movements 0 1 Vital Signs: Vital Signs - 24 hr 03/31/18 03/31/18 04/01/18 14:00 23:05 06:00 Temperature 98.5 F 97.2 F L 98.4 F Pulse Rate 119 H 118 H 101 H Respiratory 22 18 20 Rate Blood Pressure 118/74 142/94 H 115/77 O2 Sat by Pulse 95 97 97 Oximetry - Plan Discontinue Urinary Catheter: Yes (from gu standpoint pt can be dicsharged home)
--- NOTE | 2018-04-02 01:28 | PN ---
DATE: 04/01/2018 SUBJECTIVE: The patient is in bed, in no acute distress. PHYSICAL EXAMINATION: VITAL SIGNS: Temperature is 98, blood pressure is 140/100, respiratory rate of 20, heart rate of 106. HEENT: Unremarkable. NECK: Supple. LUNGS: Have decreased breath sounds. HEART: Normal S1, S2. ABDOMEN: Soft, nontender. LABORATORY EXAMINATION: Reveals the patient's white count of 13,400, hemoglobin of 9, platelets 194. BUN of 30, creatinine is 1.2, and procalcitonin is noted. Urinalysis is noted and serology is reviewed. Microbiology reveals E. coli in the blood and E. coli in the urine. Sensitive E. coli and only thing it is resistant to is ampicillin, the same pattern of resistance both in the blood and urine. Repeat blood cultures are negative. ASSESSMENT AND PLAN: A 53-year-old male with severe sepsis, Escherichia coli bacteremia with left-sided complicated pyelonephritis and nephrolithiasis, status post left ureteral stent placement with obesity with a body mass index of 37 with a history of kidney stone, hypertension, history of appendectomy, diabetes, and hypertension. Would complete 10-14 days of antibiotics, may be able to switch to p.o. antibiotics and his repeat blood cultures are negative and he has no known allergies. QTC is 443, it is sensitive to Cipro, you may be able to switch to p.o. Cipro 500 mg p.o. b.i.d. for a total of 10-14 days. Edgard Esposito MD
[2018-04-02] MEDS: Insulin Lispro (humaLOG) LOW Coverage SC SCH ×3 (08:38→17:20)
[2018-04-02] MEDS: cefTRIAXone 2 GM IN NS 2 GM/100 ML BAG IVPB SCH (09:54)
[2018-04-02] MEDS: Nystatin 100,000 Units/gm Topical Pow(15 gm) TOP SCH (16:43)
[2018-04-02] MEDS: Sodium Chloride 0.9% 1,000 ML IV SCH (17:22)
--- NOTE | 2018-04-02 19:51 | CP.PCM.PN ---
Subjective - Date & Time of Evaluation Date of Evaluation: 04/02/18 Time of Evaluation: 09:35 - Subjective Subjective: Feeling much better, no fevers, no nausea, no more flank pain. Objective - Vital Signs/Intake and Output Vital Signs (last 24 hours): Temp Pulse Resp BP Pulse Ox 97.8 F 96 H 20 138/96 H 96 04/02/18 14:00 04/02/18 17:21 04/02/18 14:00 04/02/18 17:21 04/02/18 14:00 Intake and Output: 04/02/18 04/03/18 18:59 06:59 Intake Total 480 Output Total 1700 Balance -1220 - Medications Medications: Current Medications Acetaminophen (Tylenol 325mg Tab) 975 mg PO ONCE PRN PRN Reason: Fever >100.4 F Last Admin: 03/29/18 10:52 Dose: 975 mg Albuterol/Ipratropium (Duoneb 3 Mg/0.5 Mg (3 Ml) Ud) 3 ml IH Q4H PRN PRN Reason: Shortness of Breath Last Admin: 03/31/18 13:59 Dose: 3 ml Amlodipine Besylate (Norvasc) 10 mg PO DAILY [facility] Last Admin: 04/02/18 09:50 Dose: 10 mg Heparin Sodium (Porcine) (Heparin) 5,000 units SC Q12 JÚNIOR; Protocol Last Admin: 04/02/18 09:50 Dose: 5,000 units Sodium Chloride (Sodium Chloride 0.9%) 1,000 mls @ 80 mls/hr IV .[id number] [facility] Last Admin: 04/02/18 17:22 Dose: 80 mls/hr Ceftriaxone Sodium (Rocephin 2 Gm Ivpb) 2 gm in 100 mls @ 100 mls/hr IVPB DAILY [facility]; Protocol Last Admin: 04/02/18 09:54 Dose: 100 mls/hr Insulin Human Lispro (Humalog Low) 0 units SC ACHS [facility]; Protocol Last Admin: 04/02/18 17:20 Dose: 2 units Metformin HCl (Glucophage) 1,000 mg PO BID [facility] Last Admin: 04/02/18 17:21 Dose: 1,000 mg Metoprolol Tartrate (Lopressor) 25 mg PO BID [facility] Last Admin: 04/02/18 17:21 Dose: 25 mg Morphine Sulfate (Morphine) 2 mg IVP Q6H PRN PRN Reason: Pain, moderate (4-7) Last Admin: 03/30/18 21:27 Dose: 2 mg Nystatin (Nystop Topical Powder) 1 gm TOP DAILY [facility] Last Admin: 04/02/18 16:43 Dose: Not Given Pantoprazole Sodium (Protonix Inj) 40 mg IVP DAILY [facility] Last Admin: 04/02/18 09:50 Dose: 40 mg Sitagliptin Phosphate (Januvia) 100 mg PO DAILY [facility] Last Admin: 04/02/18 09:49 Dose: 100 mg - Labs Labs: 04/01/18 07:20 04/01/18 07:20 PT 15.1 SECONDS (9.4-12.5) H 03/29/18 10:00 INR 1.31 03/29/18 10:00 APTT 22.9 Seconds (25.1-36.5) L 03/29/18 10:00 - Constitutional Appears: No Acute Distress, Chronically Ill - Head Exam Head Exam: NORMAL INSPECTION - Neck Exam Neck Exam: absent: Meningismus - Respiratory Exam Respiratory Exam: Decreased Breath Sounds - Cardiovascular Exam Cardiovascular Exam: +S1, +S2 - GI/Abdominal Exam GI & Abdominal Exam: Soft. absent: Tenderness Assessment and Plan - Assessment and Plan (Free Text) Plan: Assessment Severe sepsis due to E. coli bacteremia from left sided complicated pyelonephritis with nephrolithiasis S/P left ureteral stent placement obesity with BMI 37 history of kidney stones HTN DM S/P appendectomy Plan continue Rocephin day 4 to complete 10-14 days of therapy - can switch to PO Ciprofloxacin to complete therapy follow up further plans of Urology
[2018-04-03] MEDS: Sodium Chloride 0.9% 1,000 ML IV SCH (05:09)
[2018-04-03] MEDS ORDERED: Pantoprazole 40 mg EC Tab PO SCH (06:00)
[2018-04-03] MEDS: Insulin Lispro (humaLOG) LOW Coverage SC SCH ×3 (08:26→17:25)
[2018-04-03 09:40] VITALS: RESP 20
[2018-04-03] MEDS: cefTRIAXone 2 GM IN NS 2 GM/100 ML BAG IVPB SCH (10:49)
[2018-04-03] MEDS: Nystatin 100,000 Units/gm Topical Pow(15 gm) TOP SCH (10:52)
[2018-04-03 14:46] VITALS: TEMP 98.1; O2SAT 100
[2018-04-03 17:34] VITALS: BP 135/78; PULSE 91
--- NOTE | 2018-04-04 00:21 | PN ---
DATE: 04/03/2018 SUBJECTIVE: The patient is in bed, in no acute distress. Nontoxic. PHYSICAL EXAMINATION: VITAL SIGNS: Temperature is 98, blood pressure is 130/50, and respiratory rate of 16. HEENT: Unremarkable. NECK: Supple. LUNGS: Have decreased breath sounds. HEART: Normal S1, S2. ABDOMEN: Soft, nontender. LABORATORY EXAMINATION: Reveals white count is down to 13,400, hemoglobin of 9. Chemistries are noted with creatinine down to 1.2. Microbiology reveals repeat cultures are negative. Review of orders. The patient is on ceftriaxone. ASSESSMENT AND PLAN: A 53-year-old male, who was seen earlier today in 573, bed 1 with severe sepsis, Escherichia coli bacteremia, left-sided complicated pyelonephritis and nephrolithiasis, left ureteral stent placement, obesity on ceftriaxone day #5. We have used p.o. Cipro to complete therapy with complete 14 days of antibiotics. Edgard Esposito MD
--- NOTE | 2018-04-11 05:24 | PN ---
DATE: 03/31/2018 Please see the consult from 03/30/2018 and the operative note. The patient is septic, septicemia with blood cultures positive, urine cultures positive. He now has a stenting. He is in the recovery phase. He is actually still in the intensive care. Most likely to be moved. We passed the stent yesterday. He is feeling somewhat better for his back pain. PAST MEDICAL AND SURGICAL: No other changes. REVIEW OF SYSTEMS: Listed above, noncontributory. No other changes noted. PHYSICAL EXAMINATION: Essentially unremarkable. No major changes yet. LABORATORY DATA: Labs noted, white count noted. DIAGNOSIS: Urosepsis, gram-negative rods in the urine and blood, and Infectious Disease on board. I explained to the patient all urology operative findings and all recommendations. I explained that at some point, we are going to need to do ureteroscopy and laser lithotripsy or shockwave lithotripsy, but definitely yesterday was not the time with the sepsis. We just wanted to get the stents we can and make minimal compromise to the patient. So, currently, we are going to continue to observe the patient and then follow him as an outpatient. The plan is laid out in details. Further plans to follow. We will follow along. Stuart Dykes MD
--- NOTE | 2018-04-11 05:28 | CON ---
DATE: 04/10/2018 UROLOGY CONSULTATION HISTORY OF PRESENT ILLNESS: Mr. Lukas Shelton is very pleasant gentleman, who admitted to the third time, he is 53-year-old, he presented with sepsis. He has gram-negative rods in urine and blood actually presented and after phone call today bring the patient straight to the OR, Urology consult with uroseptic with gram-negatives in the blood and urine. PAST MEDICAL AND SURGICAL HISTORY: As listed on the chart. No history of RI or CVA. SOCIAL HISTORY: Unremarkable. REVIEW OF SYSTEMS: Listed above. Noncontributory. This is first onset sepsis from a stone. The patient reports he is also having voiding dysfunction, abdominal pain discomfort. He currently at the as well. PHYSICAL EXAMINATION: GENERAL: This is a well-nourished male, body habitus is noted. The patient is currently resting on the gurney. I will bring him to the OR. RECTAL: Deferred to now, but I will mention during the time of the cysto. There are signs of prostatitis and prostate is within normal limits. CT scan noted. Labs noted. DIAGNOSES: Urosepsis and septicemia. In summary, a very pleasant gentleman admitted with cold sepsis with white count, fever, obstructing ureteral stone. We discussed options with the patient, and discussed the option. We did discussed observation. We did discussed none of the above will be indicated without any septic. We just want to start releasing the obstruction since requiring the sepsis and with positive cultures. So, the plan for now will cystoscopy, retrograde pyelogram and a double J-stent insertion and then proceed with antibiotics for a while. Infectious Disease will be following the patient as well and Urology will make further recommendations as planned. PLAN: 1. Antibiotics, straight to the OR. 2. . Thank you for the Urology consultation. Stuart Dykse MD
--- NOTE | 2018-04-11 05:59 | PN ---
DATE: 04/02/2018 UROLOGY PROGRESS NOTE Please see previous note from 03/30/2018 and 03/31/2018. SUBJECTIVE: The patient has now been moved. He is feeling much better. White count is improving. He was admitted originally to the ICU with sepsis with septicemia, with blood cultures being positive, urine cultures being positive, all secondary to an obstructing stone. A that time, we were initially consulted on 03/30/2018, we saw the patient immediately and brought into the OR, wait for him to be n.p.o. Also, we have given a little fluid. All these being said, patient is now doing remarkably better. I discussed with the patient. He does have some stent discomfort. I explained to him that at the time we did the stent, we just wanted to make sure that we drained the kidney well and we need the obstruction to stop the healing process for the sepsis, we need the antibiotic. ID was on the case still and is providing antibiotics. See the plans as listed below. PHYSICAL EXAMINATION: No major change. DIAGNOSES: Urolithiasis, hematuria, sepsis with blood cultures and urine cultures being positive. PLAN: From Urology standpoint, the patient is stable. I explained to him in great detail, actually gave pictures at the bedside that I put a stent in. I showed him all this and that this needs to be removed. It is not a permanent stent, I explained unlike a vascular stent, which could stay in. He needs treatment for the stone. To his knowledge, he has not passed the stone, but he will need followup. I gave him my card. I have actually gave him my card almost everyday. We are going to continue to follow the patient here while he is here, but the next step is outpatient urology treatment when he is cleared from Infectious Disease standpoint and further plans will follow. Draining urine, IV hydration, antibiotics, and further plans to follow. Stuart Dykes MD
--- NOTE | 2018-04-11 06:44 | OP ---
PROCEDURE DATE: 03/30/2018 UROLOGY EMERGENCY SURGICAL PROCEDURE PREOPERATIVE DIAGNOSES: Urosepsis, septicemia with positive urine and positive blood cultures with gram-negative rods, ureteral obstruction, hydronephrosis obstructing urethral stone, hematuria, severe pain. POSTOPERATIVE DIAGNOSES: Urosepsis, septicemia with positive urine and positive blood cultures with gram-negative rods, ureteral obstruction, hydronephrosis obstructing urethral stone, hematuria, severe pain, obstructing ureteral stone. PROCEDURE: Cystoscopy, left retrograde pyelogram, insertion of left double J-stent as an emergency. COMPLICATIONS: There were no complications. ESTIMATED BLOOD LOSS: Less than 10 mL. At the termination of the procedure, the patient has a good, well located double J-stent. There were no complications. INDICATIONS FOR THE PROCEDURE: See the history and physical and the consultation note. Consultation was done on the same as well, but basically, I received the phone call this morning. The patient apparently was admitted with code sepsis yesterday, and I received the phone call today regarding the consultation, regarding this patient who presented with sepsis with gram-negative rods. From urology standpoint, we then discussed options with the ICU attending, and it is my recommendation in which we called agreement yet. The patient is brought to the OR in the afternoon hours. By the time, I received the phone call, the patient is already made n.p.o. and we are bringing procedure. See the chart for further details, but basically his white count is about 20,000. See the noted. Antibiotics were on board currently. Basically, he started stone. I then explained to the patient our recommendations and findings but this is an emergency, so I discussed to the patient. I discussed the other possibilities. Apparently, sepsis, gram-negative rods, large urine, obstructing stone that does not yet pass with ongoing issues warrants an emergency procedure, that is why doing that. The name of the procedures are cystoscopy, a left retrograde pyelogram, and insertion of left double J-stent. There were no complications UROLOGY OPERATIVE FINDINGS: 1. Anterior urethra is normal. 2. No strictures. 3. Verumontanum is moderately to visually occlusive about 2 to 3 cm. 4. Ureteral orifice identified. Retrograde pyelogram performed. Identified stent inserted via the urethra. Urethroscope was inserted without difficulty. At the termination of procedure, the patient has a well draining kidney. There were no complications. See the physical and consultation note which was dictated separately. DESCRIPTION OF PROCEDURE: After obtaining informed consent and discussing options with the patient, before even I came in I also spoke to the patient on the phone, I discussed that we are recommending to do. After discussing all these options with the patient, it is really an emergency procedure after which we made arrangements where the OR came in. Procedure as follows: The patient was placed on the table. Routine monitor was placed. Time-out was called. He is coming directly from the ICU, to insert a stent as quickly as we can. Time-out was called confirming the patient and positing. He is already on antibiotics. We introduced the cystoscope via the urethra. Normal anterior urethra. No strictures. The verumontanum is moderately visually occlusive. It is about 2 to 3 cm in length. The urethral orifice was identified. Retrograde pyelogram was performed. Films were submitted to the radiologist. The wire was passed up to the kidney, and then a double J-stent was inserted. Bladder was emptied and the cystoscope was removed. We left actually a Campbell catheter given the overall sepsis. ADDENDUM: At the termination of the procedure, we left a double J-stent in good location. We also left a Campbell catheter via the urethra. There were no complications. The patient tolerated the procedure without complication. Stuart Dykes MD
== END 2018-04-03 22:05 | disposition home or self-care (01) | DRG 854 ==
LOC: ED 09:54 → ERH 11:34 → 2RSO 12:53 → ICU 14:50 → 5RSO 03-31 13:37
PROVIDERS: ADMIT Internal Medicine Medical Oncology; ATTEND Internal Medicine Medical Oncology
PROC: BT1F1ZZ Fluoroscopy of Left Kidney, Ureter and Bladder using Low Osmolar Contrast (ICD-10-PCS; 2018-03-30)
PROC: 0T778DZ Dilation of Left Ureter with Intraluminal Device, Via Natural or Artificial Opening Endoscopic (ICD-10-PCS; principal; 2018-03-30 15:00)
DX: A41.51 Sepsis due to Escherichia coli [E. coli] (principal); N17.9 Acute kidney failure, unspecified; N10 Acute pyelonephritis; N13.2 Hydronephrosis with renal and ureteral calculous obstruction; E11.65 Type 2 diabetes mellitus with hyperglycemia; R65.20 Severe sepsis without septic shock; N21.1 Calculus in urethra; E86.0 Dehydration; F17.210 Nicotine dependence, cigarettes, uncomplicated; I10 Essential (primary) hypertension; E80.4 Gilbert syndrome; D64.9 Anemia, unspecified; Z16.11 Resistance to penicillins; E66.01 Morbid (severe) obesity due to excess calories; Z68.37 Body mass index [BMI] 37.0-37.9, adult; Z79.84 Long term (current) use of oral hypoglycemic drugs; Z87.442 Personal history of urinary calculi